=== PATIENT | female | born 1985 | race Caucasian/White ===

== ENCOUNTER 2019-04-16 02:45 | Emergency (ER) | payer OTHER ==
[2019-04-16] MEDS ORDERED: NA CHLORIDE 0.9% 1,000 ML ONE (03:27)
[2019-04-16 03:56] LABS: Absolute Lymphocytes (CBC) 2.5 K/uL (0.7-4.9); Basophils % 0.5 % (0-1.3); Hematocrit 43.3 % (36.0-45.0); Lymphocytes % 17.5 % (15.3-44.8); MPV 9.6 fL (7.6-11.3); RBC Red Blood Cell Count 4.75 M/uL (3.86-4.86)
[2019-04-16 04:41] LABS: Urine Glucose NEGATIVE (NEG); Urine Specific Gravity 1.015 (1.005-1.030)
[2019-04-16 04:42] LABS: Urine Blood 2+ (NEG); Urine Protein NEGATIVE (NEG); Urine pH 6.5 (5.0-7.0)
--- NOTE | 2019-04-16 04:52 | ER ---
[facility] Name: Elisha Villegas Age: 33 yrs Sex: Female : 1985 Arrival Date: 04/16/2019 Time: 02:48 Bed 18 Private MD: Diagnosis: Threatened Presentation: 04/16 02:50 Presenting complaint: Patient states: Vaginal bleeding with clots that started today cc3 morning only. Patient denies pain nor cramping. Patient said she has history of 10 years back. Transition of care: patient was not received from another setting of care. Onset of symptoms was April 16, 2019. Risk Assessment: Do you want to hurt yourself or someone else? Patient reports no desire to harm self or others. Initial Sepsis Screen: Does the patient meet any 2 criteria? HR > 90 bpm. Does the patient have a suspected source of infection? No. Patient's initial sepsis screen is negative. Care prior to arrival: None. 02:50 Method Of Arrival: Ambulatory cc3 02:50 Acuity: DIANE 3 cc3 Triage Assessment: 02:50 General: Appears in no apparent distress. uncomfortable, Behavior is calm, cooperative, cc3 appropriate for age. Pain: Denies pain. EENT: No signs and/or symptoms were reported regarding the EENT system. Neuro: Level of Consciousness is awake, alert, obeys commands, Oriented to person, place, time, situation, Appropriate for age. Cardiovascular: Denies chest pain, Capillary refill < 3 seconds Patient's skin is warm and dry. Respiratory: Airway is patent Respiratory effort is even, unlabored, Respiratory pattern is regular, symmetrical. GI: Abdomen is round. : Reports vaginal bleeding that is bright red, with clots, light flow, since today morning. Derm: Skin is intact, is healthy with good turgor, Skin is pink, warm \T\ dry. normal, Rash noted that is on all over the patient's upper ang lower extremities. Musculoskeletal: Circulation, motion, and sensation intact. Range of motion: intact in all extremities. 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 - Social history:: Smoking status: Patient/guardian denies using tobacco, never smoked, Patient uses vape. - Ebola Screening: : No symptoms or risks identified at this time. - Family history:: not pertinent. Screenin:50 Abuse screen: Denies threats or abuse. Denies injuries from another. Nutritional cc3 screening: No deficits noted. Tuberculosis screening: No symptoms or risk factors identified. Fall Risk Ambulatory Aid- None/Bed Rest/Nurse Assist (0 pts). Gait- Normal/Bed Rest/Wheelchair (0 pts) Mental Status- Oriented to own ability (0 pts). Assessment: 02:50 Obstetrical Assessment: General assessment: awake and alert, anxious. cc3 03:30 Reassessment: Patient appears in no apparent distress at this time. Patient and/or cc3 family updated on plan of care and expected duration. Pain level reassessed. Patient is alert, oriented x 3, equal unlabored respirations, skin warm/dry/pink. 04:19 Reassessment: Patient appears in no apparent distress at this time. Patient and/or cc3 family updated on plan of care and expected duration. Pain level reassessed. Patient is alert, oriented x 3, equal unlabored respirations, skin warm/dry/pink. 04:30 Reassessment: Patient taken by automotive exhaust emissions technician to ultrasound department by ann. cc3 04:49 Reassessment: Patient appears in no apparent distress at this time. Patient and/or cc3 family updated on plan of care and expected duration. Pain level reassessed. Patient is alert, oriented x 3, equal unlabored respirations, skin warm/dry/pink. Patient came back from ultrasound department, awaiting result. Patient denies pain at this time. 05:30 Reassessment: Patient appears in no apparent distress at this time. Patient and/or cc3 family updated on plan of care and expected duration. Pain level reassessed. Patient is alert, oriented x 3, equal unlabored respirations, skin warm/dry/pink. Dr. Childs discharged the patient home with prescription given. IV cannula removed and patient left ER vitally stable and ambulatory with her . No valuables left in the patient's room. Patient denies pain at this time. Patient states feeling better. Patient states symptoms have improved. Vital Signs: 02:50 BP 168 / 102; Pulse 99; Resp 20 S; Temp 98.2(O); Pulse Ox 99% on R/A; Weight 127.46 kg cc3 (R); Height 5 ft. 6 in. (167.64 cm) (R); Pain 0/10; 03:15 BP 135 / 61; Pulse 92; Resp 18 S; Pulse Ox 99% on R/A; cc3 04:25 BP 139 / 67; Pulse 90; Resp 17 S; Pulse Ox 99% on R/A; cc3 05:18 BP 133 / 72; Pulse 88; Resp 16 S; Pulse Ox 99% on R/A; cc3 02:50 Body Mass Index 45.35 (127.46 kg, 167.64 cm) cc3 ED Course: 02:48 Patient arrived in ED. ag3 02:50 Arm band placed on right wrist. cc3 02:50 Patient has correct armband on for positive identification. Placed in gown. Bed in low cc3 position. Call light in reach. Side rails up X 1. shelter monitor on. Pulse ox on. NIBP on. 02:55 Gera Childs MD is Attending Physician. maurice 03:05 Carla Martinez is Primary Nurse. cc3 03:11 Triage completed. cc3 03:54 Inserted saline lock: 22 gauge upper arm, using aseptic technique. oe 04:48 US Transvaginal Ob In Process Unspecified. EDMS 04:50 Norris Wen MD is Referral Physician. maurice 05:30 No provider procedures requiring assistance completed. IV discontinued, intact, cc3 bleeding controlled, No redness/swelling at site. Pressure dressing applied. Administered Medications: 03:45 Drug: NS 0.9% 1000 ml Route: IV; Rate: 1 bolus; Site: right antecubital; cc3 05:30 Follow up: Response: No adverse reaction; IV Status: Completed infusion; IV Intake: cc3 1000ml Intake: 05:30 IV: 1000ml; Total: 1000ml. cc3 Outcome: 04:51 Discharge ordered by . maurice 05:30 Discharged to home ambulatory, with family. cc3 05:30 Condition: stable 05:30 Discharge instructions given to patient, family, Instructed on discharge instructions, follow up and referral plans. medication usage, Demonstrated understanding of instructions, follow-up care, medications, Prescriptions given X 1. 05:40 Patient left the ED. cc3 Signatures: Dispatcher [employer] EDKS Gera Childs MD MD cha Espinosa, [place] oe Cordel, Charlene cc3 Brittney Avila 3
--- NOTE | 2019-04-16 04:53 | EDPHYS ---
Physician Documentation [facility] Name: Elisha Villegas Age: 33 yrs Sex: Female : 1985 Arrival Date: 04/16/2019 Time: 02:48 Bed 18 Private MD: ALEIDA Physician Gera Childs HPI: 04/16 03:28 This 33 yrs old Female presents to ER via Ambulatory with complaints of maurice Vaginal Bleeding, + Preg <12wks. 03:28 The patient presents to the emergency department with vaginal bleeding. The estimated maurice gestational age is 6 weeks. course: care: none, Leakage of Fluid: none appreciated. Previous pregnancies: in previous pregnancies patient has had , 10 yrs ago. Associated signs and symptoms: The patient has no apparent associated signs or symptoms. The patient has not experienced similar symptoms in the past. 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 - Social history:: Smoking status: Patient/guardian denies using tobacco, never smoked, Patient uses vape. - Ebola Screening: : No symptoms or risks identified at this time. - Family history:: not pertinent. ROS: 03:28 Constitutional: Negative for fever, chills, and weight loss, Eyes: Negative for injury, maurice pain, redness, and discharge, ENT: Negative for injury, pain, and discharge, Neck: Negative for injury, pain, and swelling, Cardiovascular: Negative for chest pain, palpitations, and edema, Respiratory: Negative for shortness of breath, cough, wheezing, and pleuritic chest pain, Abdomen/GI: Negative for abdominal pain, nausea, vomiting, diarrhea, and constipation, Back: Negative for injury and pain, : Negative for injury, bleeding, discharge, and swelling, MS/Extremity: Negative for injury and deformity, Skin: Negative for injury, rash, and discoloration, Neuro: Negative for headache, weakness, numbness, tingling, and seizure, Psych: Negative for depression, anxiety, suicide ideation, homicidal ideation, and hallucinations, Allergy/Immunology: Negative for hives, rash, and allergies, Endocrine: Negative for neck swelling, polydipsia, polyuria, polyphagia, and marked weight changes, Hematologic/Lymphatic: Negative for swollen nodes, abnormal bleeding, and unusual bruising. Exam: 03:28 Constitutional: This is a well developed, well nourished patient who is awake, alert, maurice and in no acute distress. Head/Face: Normocephalic, atraumatic. Eyes: Pupils equal round and reactive to light, extra-ocular motions intact. Lids and lashes normal. Conjunctiva and sclera are non-icteric and not injected. Cornea within normal limits. Periorbital areas with no swelling, redness, or edema. ENT: Nares patent. No nasal discharge, no septal abnormalities noted. Tympanic membranes are normal and external auditory canals are clear. Oropharynx with no redness, swelling, or masses, exudates, or evidence of obstruction, uvula midline. Mucous membranes moist. Neck: Trachea midline, no thyromegaly or masses palpated, and no cervical lymphadenopathy. Supple, full range of motion without nuchal rigidity, or vertebral point tenderness. No Meningismus. Chest/axilla: Normal chest wall appearance and motion. Nontender with no deformity. No lesions are appreciated. Cardiovascular: Regular rate and rhythm with a normal S1 and S2. No gallops, murmurs, or rubs. Normal PMI, no JVD. No pulse deficits. Respiratory: Lungs have equal breath sounds bilaterally, clear to auscultation and percussion. No rales, rhonchi or wheezes noted. No increased work of breathing, no retractions or nasal flaring. Abdomen/GI: Soft, non-tender, with normal bowel sounds. No distension or tympany. No guarding or rebound. No evidence of tenderness throughout. Back: No spinal tenderness. No costovertebral tenderness. Full range of motion. Skin: Warm, dry with normal turgor. Normal color with no rashes, no lesions, and no evidence of cellulitis. MS/ Extremity: Pulses equal, no cyanosis. Neurovascular intact. Full, normal range of motion. Neuro: Awake and alert, GCS 15, oriented to person, place, time, and situation. Cranial nerves II-XII grossly intact. Motor strength 5/5 in all extremities. Sensory grossly intact. Cerebellar exam normal. Normal gait. Psych: Awake, alert, with orientation to person, place and time. Behavior, mood, and affect are within normal limits. Vital Signs: 02:50 BP 168 / 102; Pulse 99; Resp 20 S; Temp 98.2(O); Pulse Ox 99% on R/A; Weight 127.46 kg cc3 (R); Height 5 ft. 6 in. (167.64 cm) (R); Pain 0/10; 03:15 BP 135 / 61; Pulse 92; Resp 18 S; Pulse Ox 99% on R/A; cc3 04:25 BP 139 / 67; Pulse 90; Resp 17 S; Pulse Ox 99% on R/A; cc3 05:18 BP 133 / 72; Pulse 88; Resp 16 S; Pulse Ox 99% on R/A; cc3 02:50 Body Mass Index 45.35 (127.46 kg, 167.64 cm) 3 MDM: 02:57 Patient medically screened. [facility] 03:30 Data reviewed: vital signs, nurses notes, lab test result(s), radiologic studies, [facility] ultrasound. 04/16 02:59 Order name: Quantitative Hcg [facility] 04/16 02:59 Order name: Abo/rh Typing [facility] 04/16 02:59 Order name: Basic Metabolic Panel; Complete Time: 04:50 [facility] 04/16 02:59 Order name: CBC with Diff; Complete Time: 04:50 [facility] 04/16 02:59 Order name: Urine Culture [facility] 04/16 03:00 Order name: HCG, Quantitative; Complete Time: 04:50 EDCT 04/16 02:59 Order name: Urine Test (obtain specimen); Complete Time: 04:06 [facility] 04/16 02:59 Order name: IV Saline Lock; Complete Time: 04:06 [facility] 04/16 02:59 Order name: Labs collected and sent; Complete Time: 04:06 [facility] 04/16 02:59 Order name: US Transvaginal Ob [facility] 04/16 03:00 Order name: ABO/RH typing; Complete Time: 04:50 EDMS 04/16 04:06 Order name: Urine Dipstick--Ancillary (enter results); Complete Time: 04:50 cm6 04/16 04:06 Order name: Urine --Ancillary (enter results); Complete Time: 04:50 cm6 04/16 02:59 Order name: NPO; Complete Time: 04:06 maurice 04/16 02:59 Order name: Urine Dipstick-Ancillary (obtain specimen); Complete Time: 04:06 [facility] Administered Medications: 03:45 Drug: NS 0.9% 1000 ml Route: IV; Rate: 1 bolus; Site: right antecubital; cc3 05:30 Follow up: Response: No adverse reaction; IV Status: Completed infusion; IV Intake: cc3 1000ml Disposition: 04/16/19 04:51 Discharged to Home. Impression: Threatened . - Condition is Stable. - Discharge Instructions: Threatened Miscarriage, Vaginal Bleeding During , First Trimester, First Trimester of , [id number], First Trimester of , Threatened Miscarriage, Uigh-pm-Vlem, Pelvic Rest. - Prescriptions for Vitamin 27- 0.8 mg Oral Tablet - take 1 tablet by ORAL route once daily; 30 tablet. - Medication Reconciliation Form, Thank You Letter, Antibiotic Education, Prescription Opioid Use, Work release form form. - Follow up: Private Physician; When: 2 - 3 days; Reason: Recheck today's complaints, Continuance of care, Re-evaluation by your physician. Follow up: Norris Wen MD; When: 2 - 3 days; Reason: Recheck today's complaints, Re-evaluation by your physician. - Problem is new. - Symptoms have improved. Signatures: Dispatcher [employer] EDCT Gera Childs MD MD cha Cordel, Charlene cc3 Corrections: (The following items were deleted from the chart) 05:40 04:51 04/16/2019 04:51 Discharged to Home. Impression: Threatened . Condition cc3 is Stable. Forms are Medication Reconciliation Form, Thank You Letter, Antibiotic Education, Prescription Opioid Use. Follow up: Private Physician; When: 2 - 3 days; Reason: Recheck today's complaints, Continuance of care, Re-evaluation by your physician. Follow up: Norris Wen; When: 2 - 3 days; Reason: Recheck today's complaints, Re-evaluation by your physician. Problem is new. Symptoms have improved. [facility]
--- NOTE | 2019-04-16 08:27 | RAD REPORT ---
EXAM DESCRIPTION: US - Transvaginal OB - 04/16/2019 4:47 am CLINICAL HISTORY: ABD CRAMPING, COMPARISON: No comparisons FINDINGS: A single gestational sac is seen within the uterus. The shape of the sac is within normal limits for gestational age. Within the sac is a single pole with crown-rump length of 4 mm, cor relating to estimated gestational age of 6 weeks 1 day. Estimated date of delivery is 12/09/2019. Heart rate is 120 BPM. The placenta is not yet developed due to early gestational age. 12 mm and 15 mm subchorionic bleeds a re seen surrounding the sac. The maternal adnexa and ovaries are within normal limits. Normal Doppler blood flow was demonstrated to both ovaries. IMPRESSION: Single live early intrauterine gestation with estimated gestational age of 6 weeks 1 day , CELESTINO 12/09/2019.
== END 2019-04-16 05:40 | disposition home or self-care (01) ==
LOC: ER 02:45
DX: O20.0 Threatened abortion (principal); O99.331 Smoking (tobacco) complicating pregnancy, first trimester; F17.290 Nicotine dependence, other tobacco product, uncomplicated; Z3A.01 Less than 8 weeks gestation of pregnancy
CPT/HCPCS: 87088; 85025; 87086; 80048; 36415; 86900; 81025; 86901; 84702; 81003; 76817; J7030; 96360; 96361; 99284

== ENCOUNTER 2023-03-14 09:20 | Emergency (ER) | payer OTHER ==
--- OUTSIDE RECORDS SUMMARY | 2023-03-14 09:26 | XMS REPORT | Continuity of Care Document ---
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 NON-REASSURING MONITORING, GDM, INSULIN DEPENDEN T, RESOLVED PLACENTAPREVIA. --- Signed Bree Khan 01/31/23 1112 END OF REPORT CBC W/AUTO [id number] 12:00:00 Test Item Value Reference Range Interpretation Comments WHITE BLOOD CELL (test 12.1 K/mm3 6.5-12.3 Resul ts verified by code = WBC) repeat analysis RED BLOOD CELL (test 3.87 M/mm3 3.51-4.69 N code = RBC) HEMOGLOBIN (test code = 11.9 g/dL 10.1-13.8 N HGB) HEMATOCRIT (test code = 35.3 % 32.5-41.8 N HCT) MEAN CELL VOLUME (test 91.2 fL 84.6-96.6 N code = MCV) MEAN CELL HGB (test code 30.7 pg 27.3-33.9 N = MCH) MEAN CELL HGB 33.7 gm/dL 32.0-34.2 N CONCETRATION (test code = MCHC) RED CELL DISTRIBUTION 13.5 % 12.2-16.3 N WIDTH (test code = RDW) PLATELET COUNT (test 178 K/mm3 134-363 N code = PLT) MEAN PLATELET VOLUME 12.1 fL 9.2-12.7 N (test code = MPV) NEUTROPHIL % (test code 75.7 % 57.9-77.3 N = NT%) LYMPHOCYTE % (test code 15.4 % 14.5-29.7 N = LY%) MONOCYTE % (test code = 6.4 % 3.6-10.2 N MO%) EOSINOPHIL % (test code 0.8 % 0.0-3.0 N = EO%) BASOPHIL % (test code = 0.5 % 0.1-0.9 N BA%) NEUTROPHIL # (test code 9.2 K/mm3 = NT#) LYMPHOCYTE # (test code 1.9 K/mm3 = LY#) MONOCYTE # (test code = 0.8 K/mm3 MO#) EOSINOPHIL # (test code 0.10 K/mm3 = EO#) BASOPHIL # (test code = 0.1 K/mm3 BA#) RBC MORPHOLOGY REQUIRED NORMAL NORMAL (test code = RBCM) PLATELET MORPHOLOGY NORMAL NORMAL REQUIRED (test code = PLTMR) [id number] 05:43:00 Test Item Value Reference Range Interpretation Comments GLUBED (test code = GLUBED) 107 mg/dL 65-110 N CBC W/AUTO [id number] 23:22:00 Test Item Value Reference Range Interpretation Comments WHITE BLOOD CELL (test code = WBC) 8.6 K/mm3 6.5-12.3 N RED BLOOD CELL (test code = RBC) 3.85 M/mm3 3.51-4.69 N HEMOGLOBIN (test code = HGB) 12.0 g/dL 10.1-13.8 N HEMATOCRIT (test code = HCT) 34.9 % 32.5-41.8 N MEAN CELL VOLUME (test code = MCV) 90.6 fL 84.6-96.6 N MEAN CELL HGB (test code = MCH) 31.2 pg 27.3-33.9 N MEAN CELL HGB CONCETRATION (test 34.4 gm/dL 32.0-34.2 H code = MCHC) RED CELL DISTRIBUTION WIDTH (test 13.1 % 12.2-16.3 N code = RDW) PLATELET COUNT (test code = PLT) 176 K/mm3 134-363 N MEAN PLATELET VOLUME (test code = 11.5 fL 9.2-12.7 N MPV) NEUTROPHIL % (test code = NT%) 61.7 % 57.9-77.3 N LYMPHOCYTE % (test code = LY%) 25.9 % 14.5-29.7 N MONOCYTE % (test code = MO%) 9.2 % 3.6-10.2 N EOSINOPHIL % (test code = EO%) 1.3 % 0.0-3.0 N BASOPHIL % (test code = BA%) 0.4 % 0.1-0.9 N NEUTROPHIL # (test code = NT#) 5.3 K/mm3 LYMPHOCYTE # (test code = LY#) 2.2 K/mm3 MONOCYTE # (test code = MO#) 0.8 K/mm3 EOSINOPHIL # (test code = EO#) 0.11 K/mm3 BASOPHIL # (test code = BA#) 0.0 K/mm3 RBC MORPHOLOGY REQUIRED (test code NORMAL NORMAL = RBCM) PLATELET MORPHOLOGY REQUIRED (test NORMAL NORMAL code = PLTMR) RUPTURE OF [id number] 22:59:00 Test Item Value Reference Range Interpretation Comments RUPTURE OF MEMBRANES (test code = RUPTURED ROM) [id number] 20:21:00 Test Item Value Reference Range Interpretation Comments GLUBED (test code = GLUBED) 81 mg/dL 65-110 N [id number] 16:30:00 Test Item Value Reference Range Interpretation Comments GLUBED (test code = GLUBED) 96 mg/dL 65-110 N [id number] 11:16:00 Test Item Value Reference Range Interpretation Comments GLUBED (test code = GLUBED) 100 mg/dL 65-110 N [id number] 06:36:00 Test Item Value Reference Range Interpretation Comments GLUBED (test code = GLUBED) 80 mg/dL 65-110 N [id number] 20:18:00 Test Item Value Reference Range Interpretation Comments GLUBED (test code = GLUBED) 91 mg/dL 65-110 N [id number] 14:22:00 Test Item Value Reference Range Interpretation Comments GLUBED (test code = GLUBED) 86 mg/dL 65-110 N [id number] 10:20:00 Test Item Value Reference Range Interpretation Comments GLUBED (test code = GLUBED) 68 mg/dL 65-110 N [id number] 06:46:00 Test Item Value Reference Range Interpretation Comments GLUBED (test code = GLUBED) 83 mg/dL 65-110 N [id number] 20:04:00 Test Item Value Reference Range Interpretation Comments GLUBED (test code = GLUBED) 78 mg/dL 65-110 N [id number] 17:40:00 Test Item Value Reference Range Interpretation Comments GLUBED (test code = GLUBED) 106 mg/dL 65-110 N [id number] 17:23:00 Test Item Value Reference Range Interpretation Comments GLUBED (test code = GLUBED) 65 mg/dL 65-110 N [id number] 14:47:00 Test Item Value Reference Range Interpretation Comments GLUBED (test code = GLUBED) 176 mg/dL 65-110 H [id number] 10:03:00 Test Item Value Reference Range Interpretation Comments GLUBED (test code = GLUBED) 74 mg/dL 65-110 N [id number] 06:10:00 Test Item Value Reference Range Interpretation Comments GLUBED (test code = GLUBED) 95 mg/dL 65-110 N [id number] 19:56:00 Test Item Value Reference Range Interpretation Comments GLUBED (test code = GLUBED) 95 mg/dL 65-110 N [id number] 16:05:00 Test Item Value Reference Range Interpretation Comments GLUBED (test code = GLUBED) 99 mg/dL 65-110 N [id number] 11:20:00 Test Item Value Reference Range Interpretation Comments GLUBED (test code = GLUBED) 135 mg/dL 65-110 H [id number] 06:24:00 Test Item Value Reference Range Interpretation Comments GLUBED (test code = GLUBED) 80 mg/dL 65-110 N [id number] 19:35:00 Test Item Value Reference Range Interpretation Comments GLUBED (test code = GLUBED) 89 mg/dL 65-110 N [id number] 14:02:00 Test Item Value Reference Range Interpretation Comments GLUBED (test code = GLUBED) 81 mg/dL 65-110 N [id number] 09:09:00 Test Item Value Reference Range Interpretation Comments GLUBED (test code = GLUBED) 73 mg/dL 65-110 N [id number] 06:03:00 Test Item Value Reference Range Interpretation Comments GLUBED (test code = GLUBED) 80 mg/dL 65-110 N [id number] 19:08:00 Test Item Value Reference Range Interpretation Comments GLUBED (test code = GLUBED) 126 mg/dL 65-110 H [id number] 15:33:00 Test Item Value Reference Range Interpretation Comments GLUBED (test code = GLUBED) 73 mg/dL 65-110 N [id number] 10:07:00 Test Item Value Reference Range Interpretation Comments GLUBED (test code = GLUBED) 76 mg/dL 65-110 N [id number] 06:29:00 Test Item Value Reference Range Interpretation Comments GLUBED (test code = GLUBED) 80 mg/dL 65-110 N [id number] 19:37:00 Test Item Value Reference Range Interpretation Comments GLUBED (test code = GLUBED) 94 mg/dL 65-110 N [id number] 14:08:00 Test Item Value Reference Range Interpretation Comments GLUBED (test code = GLUBED) 113 mg/dL 65-110 H [id number] 11:08:00 Test Item Value Reference Range Interpretation Comments GLUBED (test code = GLUBED) 63 mg/dL 65-110 L [id number] 06:09:00 Test Item Value Reference Range Interpretation Comments GLUBED (test code = GLUBED) 72 mg/dL 65-110 N [id number] 03:22:00 Test Item Value Reference Range Interpretation Comments GLUBED (test code = GLUBED) 80 mg/dL 65-110 N [id number] 20:10:00 Test Item Value Reference Range Interpretation Comments GLUBED (test code = GLUBED) 115 mg/dL 65-110 H [id number] 14:32:00 Test Item Value Reference Range Interpretation Comments GLUBED (test code = GLUBED) 77 mg/dL 65-110 N [id number] 11:03:00 Test Item Value Reference Range Interpretation Comments GLUBED (test code = GLUBED) 69 mg/dL 65-110 N [id number] 05:52:00 Test Item Value Reference Range Interpretation Comments GLUBED (test code = GLUBED) 79 mg/dL 65-110 N [id number] 20:10:00 Test Item Value Reference Range Interpretation Comments GLUBED (test code = GLUBED) 94 mg/dL 65-110 N [id number] 14:10:00 Test Item Value Reference Range Interpretation Comments GLUBED (test code = GLUBED) 80 mg/dL 65-110 N [id number] 09:44:00 Test Item Value Reference Range Interpretation Comments GLUBED (test code = GLUBED) 70 mg/dL 65-110 N [id number] 05:51:00 Test Item Value Reference Range Interpretation Comments GLUBED (test code = GLUBED) 71 mg/dL 65-110 N [id number] 20:41:00 Test Item Value Reference Range Interpretation Comments GLUBED (test code = GLUBED) 86 mg/dL 65-110 N [id number] 14:06:00 Test Item Value Reference Range Interpretation Comments GLUBED (test code = GLUBED) 121 mg/dL 65-110 H [id number] 11:01:00 Test Item Value Reference Range Interpretation Comments GLUBED (test code = GLUBED) 87 mg/dL 65-110 N [id number] 06:55:00 Test Item Value Reference Range Interpretation Comments GLUBED (test code = GLUBED) 88 mg/dL 65-110 N [id number] 06:17:00 Test Item Value Reference Range Interpretation Comments GLUBED (test code = GLUBED) 63 mg/dL 65-110 L [id number] 19:54:00 Test Item Value Reference Range Interpretation Comments GLUBED (test code = GLUBED) 82 mg/dL 65-110 N [id number] 13:22:00 Test Item Value Reference Range Interpretation Comments GLUBED (test code = GLUBED) 103 mg/dL 65-110 N [id number] 10:48:00 Test Item Value Reference Range Interpretation Comments GLUBED (test code = GLUBED) 81 mg/dL 65-110 N [id number] 06:53:00 Test Item Value Reference Range Interpretation Comments GLUBED (test code = GLUBED) 95 mg/dL 65-110 N [id number] 06:14:00 Test Item Value Reference Range Interpretation Comments GLUBED (test code = GLUBED) 67 mg/dL 65-110 N [id number] 19:49:00 Test Item Value Reference Range Interpretation Comments GLUBED (test code = GLUBED) 89 mg/dL 65-110 N [id number] 13:59:00 Test Item Value Reference Range Interpretation Comments GLUBED (test code = GLUBED) 97 mg/dL 65-110 N [id number] 06:13:00 Test Item Value Reference Range Interpretation Comments GLUBED (test code = GLUBED) 99 mg/dL 65-110 N [id number] 19:40:00 Test Item Value Reference Range Interpretation Comments GLUBED (test code = GLUBED) 139 mg/dL 65-110 H [id number] 15:25:00 Test Item Value Reference Range Interpretation Comments GLUBED (test code = GLUBED) 115 mg/dL 65-110 H [id number] 10:21:00 Test Item Value Reference Range Interpretation Comments GLUBED (test code = GLUBED) 98 mg/dL 65-110 N [id number] 05:45:00 Test Item Value Reference Range Interpretation Comments GLUBED (test code = GLUBED) 121 mg/dL 65-110 H [id number] 20:12:00 Test Item Value Reference Range Interpretation Comments GLUBED (test code = GLUBED) 135 mg/dL 65-110 H [id number] 16:34:00 Test Item Value Reference Range Interpretation Comments GLUBED (test code = GLUBED) 98 mg/dL 65-110 N AG HEPATITIS B [id number] 15:23:00 Test Item Value Reference Range Interpretation Comments AG HEPATITIS B SURFACE (test code NONREACTIVE NONREACTIVE = HBSAG) AB HEPATITIS C [id number] 15:23:00 Test Item Value Reference Range Interpretation Comments AB HEPATITIS C (test code = NONREACTIVE NONREACTIVE HCVAB) SIGNAL TO CUTOFF (test code = 0.04 <0.80 N CUTOFF) AB [id number] 15:23:00 Test Item Value Reference Range Interpretation Comments AB TREPONEMA (test code = TREPAB) NONREACTIVE NONREACTIVE AB HIV 1 15:23:00 Test Item Value Reference Range Interpretation Comments AB HIV 1 2 (test NONREACTIVE NONREACTIVE [facility] = PEG61JS) 4th Gen HIV Ag/Ab Combo Screen CBC W/AUTO [id number] 14:28:00 Test Item Value Reference Range Interpretation Comments WHITE BLOOD CELL (test code = WBC) 10.7 K/mm3 6.5-12.3 N RED BLOOD CELL (test code = RBC) 4.05 M/mm3 3.51-4.69 N HEMOGLOBIN (test code = HGB) 12.6 g/dL 10.1-13.8 N HEMATOCRIT (test code = HCT) 36.5 % 32.5-41.8 N MEAN CELL VOLUME (test code = MCV) 90.1 fL 84.6-96.6 N MEAN CELL HGB (test code = MCH) 31.1 pg 27.3-33.9 N MEAN CELL HGB CONCETRATION (test 34.5 gm/dL 32.0-34.2 H code = MCHC) RED CELL DISTRIBUTION WIDTH (test 13.4 % 12.2-16.3 N code = RDW) PLATELET COUNT (test code = PLT) 188 K/mm3 134-363 N MEAN PLATELET VOLUME (test code = 11.5 fL 9.2-12.7 N MPV) NEUTROPHIL % (test code = NT%) 75.9 % 57.9-77.3 N LYMPHOCYTE % (test code = LY%) 15.4 % 14.5-29.7 N MONOCYTE % (test code = MO%) 6.6 % 3.6-10.2 N EOSINOPHIL % (test code = EO%) 0.7 % 0.0-3.0 N BASOPHIL % (test code = BA%) 0.6 % 0.1-0.9 N NEUTROPHIL # (test code = NT#) 8.1 K/mm3 LYMPHOCYTE # (test code = LY#) 1.7 K/mm3 MONOCYTE # (test code = MO#) 0.7 K/mm3 EOSINOPHIL # (test code = EO#) 0.07 K/mm3 BASOPHIL # (test code = BA#) 0.1 K/mm3 RBC MORPHOLOGY REQUIRED (test code NORMAL NORMAL = RBCM) PLATELET MORPHOLOGY REQUIRED (test NORMAL NORMAL code = PLTMR) URINALYSIS [id number] 10:02:00 Test Item Value Reference Range Interpretation Comments UA COLOR (test code = YELLOW YELLOW COLU) UA APPEARANCE (test code CLEAR CLEAR = APPU) UA GLUCOSE DIPSTICK (test NEGATIVE NEG code = DGLUU) UA BILIRUBIN DIPSTICK NEGATIVE NEG (test code = BILU) UA KETONE DIPSTICK (test NEGATIVE NEG code = KETU) UA SPECIFIC GRAVITY (test 1.005 1.001-1.035 N code = SGU) UA BLOOD DIPSTICK (test 3+ NEG A code = ERNIE) UA PH DIPSTICK (test code 7.0 5-9 = MICHELLE) UA PROTEIN DIPSTICK (test NEGATIVE NEG code = PROU) UA UROBILINIOGEN DIPSTICK NEGATIVE mg/dL NEG (test code = URO) UA NITRITE DIPSTICK (test NEG NEG code = TRACY) UA LEUKOCYTE ESTERASE 2+ NEG A DIPSTICK (test code = LEUU) UA WBC (test code = WBCU) 16-20 #/hpf NONE SEEN A UA RBC (test code = RBCU) TOO NUMEROUS TO CNT NONE SEEN A #/hpf UA EPITHELIAL CELLS (test RARE #/HPF RARE-FEW code = EPIU) UA BACTERIA (test code = RARE /HPF RARE-FEW BACU) UA MUCUS (test code = RARE NONE SEEN MUCU) URINE SAMPLE: CLEAN CATCHURINALYSIS [id number] 06:43:00 Test Item Value Reference Range Interpretation Comments UA COLOR (test code = COLU) STRAW YELLOW UA APPEARANCE (test code = CLEAR CLEAR APPU) UA GLUCOSE DIPSTICK (test code NEGATIVE NEG = DGLUU) UA BILIRUBIN DIPSTICK (test NEGATIVE NEG code = BILU) UA KETONE DIPSTICK (test code NEGATIVE NEG = KETU) UA SPECIFIC GRAVITY (test code 1.003 1.001-1.035 N = SGU) UA BLOOD DIPSTICK (test code = 3+ NEG A ERNIE) UA PH DIPSTICK (test code = 7.0 5-9 MICHELLE) UA PROTEIN DIPSTICK (test code NEGATIVE NEG = PROU) UA UROBILINIOGEN DIPSTICK NEGATIVE mg/dL NEG (test code = URO) UA NITRITE DIPSTICK (test code NEG NEG = TRACY) UA LEUKOCYTE ESTERASE DIPSTICK TRACE NEG A (test code = LEUU) UA WBC (test code = WBCU) 3-5 #/hpf NONE SEEN A UA RBC (test code = RBCU) 0-2 #/hpf NONE SEEN UA EPITHELIAL CELLS (test code RARE #/HPF RARE-FEW = EPIU) UA BACTERIA (test code = BACU) RARE /HPF RARE-FEW Specimen Comment: REGINO PEÑA SAMPLE: CLEAN [id number] 06:21:00 Test Item Value Reference Range Interpretation Comments GLUBED (test code = GLUBED) 79 mg/dL 65-110 N CBC W/AUTO [id number] 06:16:00 Test Item Value Reference Range Interpretation Comments WHITE BLOOD CELL (test code = WBC) 9.9 K/mm3 6.5-12.3 N RED BLOOD CELL (test code = RBC) 3.78 M/mm3 3.51-4.69 N HEMOGLOBIN (test code = HGB) 11.7 g/dL 10.1-13.8 N HEMATOCRIT (test code = HCT) 33.6 % 32.5-41.8 N MEAN CELL VOLUME (test code = MCV) 88.9 fL 84.6-96.6 N MEAN CELL HGB (test code = MCH) 31.0 pg 27.3-33.9 N MEAN CELL HGB CONCETRATION (test 34.8 gm/dL 32.0-34.2 H code = MCHC) RED CELL DISTRIBUTION WIDTH (test 13.2 % 12.2-16.3 N code = RDW) PLATELET COUNT (test code = PLT) 163 K/mm3 134-363 N MEAN PLATELET VOLUME (test code = 10.9 fL 9.2-12.7 N MPV) NEUTROPHIL % (test code = NT%) 74.5 % 57.9-77.3 N LYMPHOCYTE % (test code = LY%) 16.4 % 14.5-29.7 N MONOCYTE % (test code = MO%) 7.2 % 3.6-10.2 N EOSINOPHIL % (test code = EO%) 0.6 % 0.0-3.0 N BASOPHIL % (test code = BA%) 0.4 % 0.1-0.9 N NEUTROPHIL # (test code = NT#) 7.4 K/mm3 LYMPHOCYTE # (test code = LY#) 1.6 K/mm3 MONOCYTE # (test code = MO#) 0.7 K/mm3 EOSINOPHIL # (test code = EO#) 0.06 K/mm3 BASOPHIL # (test code = BA#) 0.0 K/mm3 RBC MORPHOLOGY REQUIRED (test code NORMAL NORMAL = RBCM) PLATELET MORPHOLOGY REQUIRED (test NORMAL NORMAL code = PLTMR) - US [id number] 00:00:[address] : 1985 Sex: F Patient Name: ELISHA HEAD Unit No: [id number] EXAMS: CPT CODE: [id number] US LTD 06685 PROCEDURE INFORMATION: Exam: US , Limited Exam date and time: 01/02/2023 7:02 AM Age: 37 years old Clinical indication: Lmp or gestational age (in weeks): 30w6d; Antepartum complications; Bleeding; ; Prior surgery; Additional info: Lower abd pressure, vag bleeding TECHNIQUE: Imaging protocol: Real-time ultrasound of the maternal uterus with image documentation. Exam focused on the clinical indication. COMPARISON: US LTD 11/02/2022 5:01 PM FINDINGS: Gestation: Single intrauterine uterine gestation. heart rate: 137 bpm presentation: Vertex Placenta: Placenta is located anteriorly. Grade 2. No placenta previa. Amniotic fluid index: AGUEDA is 19.3 cm. Umbilical cord insertion site into the abdomen: Umbilical cord vessels are seen coursing between the head and cervix. MATERNAL: Cervix: 3.1 cm. IMPRESSION: Umbilical cord vessels are seen coursing between thefetal head and cervix. at 0821 Reported and signed by: Cindy Kinsey MD CC: Lenora Macario MD; Ky Dailey MD Technologist: Eunice Irby RDMS Probe: Trnscrbd D/ (820) GCD.CPS Orig Print D/T: S: 01/02/2023 (820) [facility] NAME: ELISHA HEAD Radiology Department PHYS: Serjio Black MD [address] : 1985 AGE: 37 SEX: F [place] [address] LOC: LonnieESTEFANÍA PHONE #: [phone] EXAM DATE: 01/02/2023 STATUS: REG ER FAX #: [phone] RAD NO: Page 1 Signed Report Patient Name: ELISHA HEAD Unit No: [id number] EXAMS: CPT CODE: [id number] LTD 35136 (Continued) [facility] NAME: ELISHA HEAD Radiology Department PHYS: Lenora Black MD [address] : 1985 AGE: 37 SEX: F [place] [address] LOC: Russ.ESTEFANÍA PHONE #: [phone] EXAM DATE: 01/02/2023 STATUS: REG ER FAX #: [phone] RAD NO: Page 2 Signed [id number] 06:13:00 Test Item Value Reference Range Interpretation Comments GLUBED (test code = GLUBED) 84 mg/dL 65-110 N [id number] 20:51:00 Test Item Value Reference Range Interpretation Comments GLUBED (test code = GLUBED) 84 mg/dL 65-110 N [id number] 15:51:00 Test Item Value Reference Range Interpretation Comments GLUBED (test code = GLUBED) 84 mg/dL 65-110 N [id number] 12:18:00 Test Item Value Reference Range Interpretation Comments GLUBED (test code = GLUBED) 82 mg/dL 65-110 N [id number] 06:08:00 Test Item Value Reference Range Interpretation Comments GLUBED (test code = GLUBED) 79 mg/dL 65-110 N - US [id number] 00:00[facility]00 [facility] 1985 Sex: F Patient Name: ELISHA HEAD Unit No: [id number] EXAMS: CPT CODE: [id number] US LTD 64235 PROCEDUREINFORMATION: Exam: US , Limited Exam date and time: 11/02/2022 5:01 PM Age: 37 years old Clinical indication: Lmp or gestational age (in weeks): Previa with bleeding; ; Prior surgery; Surgery date: 6+ months; Surgery type: LABS AND CLINICAL REPORTS: Gestational age (Established): 22 w 1 d Estimated due date (Established): 03/07/2023 TECHNIQUE: Imaging protocol: Real-time ultrasound of the maternal uterus with image documentation. Exam focused on the clinical indication. COMPARISON: No relevant prior studies available. FINDINGS: Limitations: No transvaginal exam was performed as requested by ordering physician. Gestation: Single live intrauterine gestation. heart rate: 147 bpm presentation: Cephalic presentation. Placenta: Anterior grade 1 placenta without placenta previa. The inferior margin of the placenta terminates 2.1 cm from the internal cervicalos, but there appears to be some vessels near the internal os by color Doppler which may represent marginal sinus previa. Hypoechoic collection deep to the inferior aspect of the placenta measures 4.4 x 1.1 x 4.5 cm (11.3 mL). Amniotic fluid index: AGUEDA is 11.8 cm. MATERNAL: Cervix: The cervix measures3.2 cm via translabial approach. Right ovary/adnexa: The right ovary measures 2 x 1.4 x 1.5 cm. Normal contour. Left ovary/adnexa: The left ovary was not visualized. No adnexal mass. IMPRESSION: 1. Somewhat limited exam as no transvaginal ultrasound was performed. Possible marginal sinus previa. 2. Small retroplacental hemorrhage. 3. Normal amniotic fluid index of 11.8 cm. at 0835 Reported and signed by: Jone Curry MD [facility] NAME: ELISHA HEAD Radiology Department PHYS: Ky Briggs MD [address] : 1985 AGE: 37 SEX: F [place] [address] LOC: F.5052 A PHONE #: [phone] EXAM DATE: 11/02/2022 STATUS: ADM IN FAX #: [phone] RAD NO: Page 1 Signed Report (CONTINUED) Patient Name: ELISHA HEAD Unit No: [id number] EXAMS: CPT CODE: [id number] LTD [id number] (Continued) CC: Ky Dailey MD Technologist: Antonina Becerra RDMS Probe: Trnscrbd D/ (834) [email or web address] Orig Print D/T: S: 11/03/2022 (834) [facility] NAME: ELISHA HEAD Radiology Department PHYS: Ky Briggs MD [address] : 1985 AGE: 37SEX: F [place] [address] LOC: F.5052 A PHONE #: [phone] EXAM DATE: 11/02/2022 STATUS: ADM IN FAX #: [phone] RAD NO: Page 2 Signed Report Patient Name: ELISHA HAED Unit No: [id number] EXAMS: CPT CODE: [id number] [place] LTD 14898 (Continued) [facility] NAME: ELISHA HEAD Radiology Department PHYS: Ky Briggs MD [address] : 1985 AGE: 37 SEX: F [place], [place] [address] LOC: F.Radha2 A PHONE #: [phone] EXAM DATE: 11/02/2022 STATUS: ADM IN FAX #: [phone] RAD NO: Page 3 Signed [id number] 20:19:00 Test Item Value Reference Range Interpretation Comments GLUBED (test code = GLUBED) 77 mg/dL 65-110 N [id number] 14:58:00 Test Item Value Reference Range Interpretation Comments GLUBED (test code = GLUBED) 78 mg/dL 65-110 N AB HIV 1 14:50:00 Test Item Value Reference Range Interpretation Comments AB HIV 1 2 (test NONREACTIVE NONREACTIVE Done by [facility] code = [id number]) 4th Gen HIV Ag/Ab Combo Screen AG HEPATITIS B [id number] 14:50:00 Test Item Value Reference Range Interpretation Comments AG HEPATITIS B SURFACE (test code NONREACTIVE NONREACTIVE = HBSAG) AB HEPATITIS C [id number] 14:50:00 Test Item Value Reference Range Interpretation Comments AB HEPATITIS C (test code = NONREACTIVE NONREACTIVE HCVAB) SIGNAL TO CUTOFF (test code = 0.11 <0.80 N CUTOFF) AB [id number] 14:50:00 Test Item Value Reference Range Interpretation Comments AB TREPONEMA (test code = TREPAB) NONREACTIVE NONREACTIVE URINALYSIS [id number] 07:47:00 Test Item Value Reference Range Interpretation Comments UA COLOR (test code = COLU) COLORLESS YELLOW UA APPEARANCE (test code = CLEAR CLEAR APPU) UA GLUCOSE DIPSTICK (test NEGATIVE NEG code = DGLUU) UA BILIRUBIN DIPSTICK (test NEGATIVE NEG code = BILU) UA KETONE DIPSTICK (test code NEGATIVE NEG = KETU) UA SPECIFIC GRAVITY (test 1.001 1.001-1.035 N code = SGU) UA BLOOD DIPSTICK (test code 2+ NEG A = ERNIE) UA PH DIPSTICK (test code = 7.0 5-9 MICHELLE) UA PROTEIN DIPSTICK (test NEGATIVE NEG code = PROU) UA UROBILINIOGEN DIPSTICK NEGATIVE mg/dL NEG (test code = URO) UA NITRITE DIPSTICK (test NEG NEG code = TRACY) UA LEUKOCYTE ESTERASE NEG NEG DIPSTICK (test code = LEUU) UA WBC (test code = WBCU) NONE SEEN #/hpf NONE SEEN UA RBC (test code = RBCU) 0-2 #/hpf NONE SEEN UA EPITHELIAL CELLS (test RARE #/HPF RARE-FEW code = EPIU) UA BACTERIA (test code = NEGATIVE /HPF RARE-FEW BACU) Specimen Comment: [facility] SAMPLE: CLEAN CATCHCBC W/AUTO [id number] 07:25:00 Test Item Value Reference Range Interpretation Comments WHITE BLOOD CELL (test code = WBC) 8.1 K/mm3 6.5-12.3 N RED BLOOD CELL (test code = RBC) 3.91 M/mm3 3.51-4.69 N HEMOGLOBIN (test code = HGB) 12.2 g/dL 10.1-13.8 N HEMATOCRIT (test code = HCT) 35.0 % 32.5-41.8 N MEAN CELL VOLUME (test code = MCV) 89.5 fL 84.6-96.6 N MEAN CELL HGB (test code = MCH) 31.2 pg 27.3-33.9 N MEAN CELL HGB CONCETRATION (test 34.9 gm/dL 32.0-34.2 H code = MCHC) RED CELL DISTRIBUTION WIDTH (test 13.7 % 12.2-16.3 N code = RDW) PLATELET COUNT (test code = PLT) 171 K/mm3 134-363 N MEAN PLATELET VOLUME (test code = 11.1 fL 9.2-12.7 N MPV) NEUTROPHIL % (test code = NT%) 73.6 % 57.9-77.3 N LYMPHOCYTE % (test code = LY%) 18.6 % 14.5-29.7 N MONOCYTE % (test code = MO%) 6.0 % 3.6-10.2 N EOSINOPHIL % (test code = EO%) 0.9 % 0.0-3.0 N BASOPHIL % (test code = BA%) 0.4 % 0.1-0.9 N NEUTROPHIL # (test code = NT#) 6.0 K/mm3 LYMPHOCYTE # (test code = LY#) 1.5 K/mm3 MONOCYTE # (test code = MO#) 0.5 K/mm3 EOSINOPHIL # (test code = EO#) 0.07 K/mm3 BASOPHIL # (test code = BA#) 0.0 K/mm3 RBC MORPHOLOGY REQUIRED (test code NORMAL NORMAL = RBCM) PLATELET MORPHOLOGY REQUIRED (test NORMAL NORMAL code = PLTMR) POCT [id number] 16:07:00 Test Item Value Reference Range Interpretation Comments POCT PREG (test code = 1605) Negative On board controls acceptable with C Yes Line (test code = 3574) POCT PREG LOT # (test code = 3575) POCT PREG TEST DATE (test code = 3576) [id number]:07:00 Test Item Value Reference Range Interpretation Comments POCT PREG (test code = 1605) Negative On board controls acceptable with C Yes Line (test code = 3574) POCT PREG LOT # (test code = 3575) POCT PREG TEST DATE (test code = 3576) [facility]] GLUCOSE TOLERANCE TEST, 3 SPECIMENS, (75G)2020-01-10 08:19:00 Test Item Value Reference Range Interpretation Comments FASTING SPECIMEN 84 mg/dl 65-99 N (test code = FASTING SPECIMEN) 1 HOUR SPECIMEN 114 mg/dl N (test code = 1 HOUR SPECIMEN) 2 HOUR SPECIMEN 55 mg/dl <140 (test code = 2 HOUR SPECIMEN) COMMENT (test See Below Spanish Diabe lyubov code = COMMENT) AssociationD iagnostic Criteria for Di abetes Mellitus Glucos e Value (mg/dL)Interpre tation Fasting 1 Hr 2 Hr Tolerance Tolerance------ -------- --------- ----- ---- ---------Normal <100 Not Established <14 0Impaired Fasting 100-125 Impaired Tolerance 140-1 99Diabetes >MV=305* >OR=20 0 Must be confirmed by te sting on a subsequent day. [facility][QH] STREPTOCOCCUS, GROUP B CULTURE (Genital Strep Screen) 2019-11-13 16:07:01 Test Item Value Reference Range Interpretation Comments FINAL REPORT (test No Beta-Hemolytic code = FINAL REPORT) Streptococci Isolated [facility][Q] STREPTOCOCCUS, GROUP B CULTURE (Genital Strep Screen)2019-11-13 16:07:01 Test Item Value Reference Range Interpretation Comments FINAL REPORT (test No Beta-Hemolytic code = FINAL REPORT) Streptococci Isolated [facility][O] Urine Dipstick (In Office)2019-11-13 15:26:00 Test Item Value Reference Range Interpretation Comments Glucose (test code = Glucose) neg N LEUKOCYTES (test code = LEUKOCYTES) neg N NITRITE; Normal (test code = 21673-4) neg N UROBILINOGEN; Normal (test code = 0.2 N 63444-4) PROTEIN; Normal (test code = 05856-1) neg N pH (test code = pH) 7.0 N URINE BLOOD; Normal (test code = neg N 93410-5) SPECIFIC GRAVITY; Normal (test code = 1.015 N 2965-2) KETONES; Normal (test code = 67774-8) neg N BILIRUBIN; Normal (test code = 12449-5) neg N [facility][QH] HIV AB, HIV 1/2, EIA, WITH [id number] 14:44:01 Test Item Value Reference Range Interpretation Comments HIV Ag/Ab 4th Gen Negative Negative HIV test r esults should be (test code = considered posi tive only 42917-4) when both the s creening andthe confirma tory tests are positive. A negative confirmatory te st in patientswith a positive screening test does not exclude HIV inf ection. If clincallywarran leyla, an HIV RNA quantitativ e test should be order ed. [facility][Q] HIV AB, HIV 1/2, EIA, WITH [id number] 14:44:01 Test Item Value Reference Range Interpretation Comments HIV Ag/Ab 4th Gen Negative Negative HIV test r esults should be (test code = considered posi tive only 54931-8) when both the s creening andthe confirma tory tests are positive. A negative confirmatory te st in patientswith a positive screening test does not exclude HIV inf ection. If clincallywarran leyla, an HIV RNA quantitativ e test should be order ed. [facility][O] Urine Dipstick (In Office)2019-11-06 13:52:00 Test Item Value Reference Range Interpretation Comments Glucose (test code = Glucose) neg N LEUKOCYTES (test code = LEUKOCYTES) neg N NITRITE; Normal (test code = 68781-2) neg N UROBILINOGEN; Normal (test code = 0.2 N 86684-3) PROTEIN; Normal (test code = 28614-7) neg N pH (test code = pH) 7.0 N URINE BLOOD; Normal (test code = neg N 24423-1) SPECIFIC GRAVITY; Normal (test code = 1.015 N 2965-2) KETONES; Normal (test code = 65149-2) neg N BILIRUBIN; Normal (test code = 30762-9) neg N [facility][O] Urine Dipstick (In Office)2019-10-23 14:00:00 Test Item Value Reference Range Interpretation Comments Glucose (test code = Glucose) Negative N LEUKOCYTES (test code = LEUKOCYTES) Negative N NITRITE; Normal (test code = Negative N 51466-3) UROBILINOGEN; Normal (test code = 0.2 N 88575-7) PROTEIN; Normal (test code = Negative N 81006-6) pH (test code = pH) 7.0 N URINE BLOOD; Normal (test code = Negative N 17010-5) SPECIFIC GRAVITY; Normal (test code 1.010 N = 2965-2) KETONES; Normal (test code = Negative N 63169-1) BILIRUBIN; Normal (test code = Negative N 01823-3) [facility][O] Urine Dipstick (In Office)2019-10-09 15:16:00 Test Item Value Reference Range Interpretation Comments Glucose (test code = Glucose) Negative N LEUKOCYTES (test code = LEUKOCYTES) Negative N NITRITE; Normal (test code = Negative N 96778-3) UROBILINOGEN; Normal (test code = 0.2 N 73929-0) PROTEIN; Normal (test code = Negative N 09584-9) pH (test code = pH) 5.5 N URINE BLOOD; Normal (test code = Negative N 96050-4) SPECIFIC GRAVITY; Normal (test code 1.025 N = 2965-2) KETONES; Normal (test code = Negative N 15098-6) BILIRUBIN; Normal (test code = Negative N 99737-2) [facility][O] Urine Dipstick (In Office)2019-09-25 09:09:00 Test Item Value Reference Range Interpretation Comments Glucose (test code = Glucose) neg N LEUKOCYTES (test code = LEUKOCYTES) neg N NITRITE; Normal (test code = 41040-6) neg N UROBILINOGEN; Normal (test code = 0.2 N 44358-8) PROTEIN; Normal (test code = 41778-6) neg N pH (test code = pH) 7.0 N URINE BLOOD; Normal (test code = neg N 51198-4) [facility]] CBC (INCLUDES DIFF/PLT)2019-09-11 16:58:01 Test Item Value Reference Range Interpretation Comments WBC; Above High Threshold (test 12.2 {K/CMM} 3.7-10.4 code = 6690-2) RBC (test code = 789-8) 4.32 {M/CMM} 4.20-5.40 Hgb (test code = 718-7) 12.8 g/dl 12.0-16.0 Hct (test code = 15539-2) 38.2 % 36.0-48.0 MCV (test code = 787-2) 88.4 fL 80.0-98.0 MCH (test code = 785-6) 29.7 pg 27.0-31.0 MCHC (test code = 786-4) 33.6 g/dl 32.0-36.0 RDW (test code = 788-0) 13.8 % 11.5-14.5 Platelet (test code = 93268-5) 226 {K/CMM} 133-450 Mean Platelet Volume (test code 10.0 fL 7.4-10.4 = 65675-7) [facility]] [id number] 16:58:01 Test Item Value Reference Range Interpretation Comments Segmented Neutrophils (test code 71.7 % 45.0-75.0 = 30876-8) Monocytes (test code = 29411-2) 5.5 % 2.0-12.0 Lymphocytes (test code = 20669-4) 21.4 % 20.0-40.0 Eosinophils (test code = 32282-4) 1.2 % 0.0-4.0 Basophils (test code = 706-2) 0.2 % 0.0-1.0 Segs-Bands #; Above High 8.7 {K/CMM} 1.5-8.1 Threshold (test code = 77222-3) Lymphocytes # (test code = 2.6 {K/CMM} 1.0-5.5 07384-3) Monocytes # (test code = 44440-9) 0.7 {K/CMM} 0.0-0.8 Eosinophils # (test code = 0.1 {K/CMM} 0.0-0.5 53527-2) [facility][H] Treponemal Scr w/ RPR if [id number] 16:58:01 Test Item Value Reference Range Interpretation Comments Treponemal Ab (test code = Non-Reactive Non-Reactive Treponemal Ab) [facility][O] Urine Dipstick (In Office)2019-09-11 15:47:00 Test Item Value Reference Range Interpretation Comments Glucose (test code = Glucose) Negative N LEUKOCYTES (test code = LEUKOCYTES) Negative N NITRITE; Normal (test code = Negative N 67629-5) UROBILINOGEN; Normal (test code = 0.2 N 59709-2) PROTEIN; Normal (test code = Negative N 16115-7) pH (test code = pH) 6.5 N URINE BLOOD; Normal (test code = Negative N 87799-4) SPECIFIC GRAVITY; Normal (test code 1.020 N = 2965-2) KETONES; Abnormal (test code = Trace A 38631-8) BILIRUBIN; Normal (test code = Negative N 65733-0) [facility][O] Urine Dipstick (In Office)2019-08-14 14:30:00 Test Item Value Reference Range Interpretation Comments Glucose (test code = Glucose) Negative N LEUKOCYTES (test code = LEUKOCYTES) Negative N NITRITE; Normal (test code = Negative N 97330-7) UROBILINOGEN; Normal (test code = 0.2 N 99184-4) PROTEIN; Normal (test code = Negative N 26024-4) pH (test code = pH) 6.0 N URINE BLOOD; Normal (test code = Negative N 18703-6) SPECIFIC GRAVITY; Normal (test code 1.015 N = 2965-2) KETONES; Abnormal (test code = 15 A 18604-5) BILIRUBIN; Normal (test code = Negative N 75232-4) [facility][O] Urine Dipstick (In Office)2019-07-31 12:08:00 Test Item Value Reference Range Interpretation Comments Glucose (test code = Glucose) Negative N LEUKOCYTES (test code = LEUKOCYTES) Negative N NITRITE; Normal (test code = Negative N 04851-1) UROBILINOGEN; Normal (test code = 0.2 N 23264-6) PROTEIN; Normal (test code = Negative N 41735-5) pH (test code = pH) 7.0 N URINE BLOOD; Normal (test code = Negative N 01914-9) SPECIFIC GRAVITY; Normal (test code 1.015 N = 2965-2) KETONES; Normal (test code = Negative N 20885-7) BILIRUBIN; Normal (test code = Negative N 12071-2) [facility][O] Urine Dipstick (In Office)2019-07-17 14:25:00 Test Item Value Reference Range Interpretation Comments Glucose (test code = Glucose) 100 A LEUKOCYTES (test code = LEUKOCYTES) Negative N NITRITE; Normal (test code = Negative N 29646-4) UROBILINOGEN; Normal (test code = 0.2 N 17492-1) PROTEIN; Normal (test code = Negative N 51061-1) pH (test code = pH) 6.0 N URINE BLOOD; Normal (test code = Negative N 93844-7) SPECIFIC GRAVITY; Normal (test code 1.015 N = 2965-2) KETONES; Abnormal (test code = 40 A 43901-8) BILIRUBIN; Normal (test code = Negative N 77844-4) [facility]] CMP [id number] 11:12:01 Test Item Value Reference Range Interpretation Comments Sodium Level 138 {mEq/l} 135-145 (test code = 2951-2) Potassium Level 3.9 {mEq/l} 3.5-5.1 (test code = 2823-3) Chloride Level 106 {mEq/l} 95-109 (test code = 2075-0) Carbon Dioxide 28 {mEq/l} 24-32 (test code = 2027-9) AGAP; Below Low 7.9 {mEq/l} 10.0-20.0 Threshold (test code = 13326-8) Glucose Lvl (test 84 mg/dl 70-99 Adult refe rence range code = 2345-7) values reflec t the clinical guidel inesof the [place] Diabet es Association. Creatinine Lvl 0.60 mg/dl 0.50-1.40 (test code = 2160-0) Blood Urea 7 mg/dl 7-22 Nitrogen (test code = 3094-0) BUN/Creatinine 12 6-25 Ratio (test code = 3097-3) Total Protein 6.5 g/dl 6.4-8.4 (test code = 2885-2) Albumin Lvl; 3.3 g/dl 3.5-5.0 Below Low Threshold (test code = 1751-7) Globulin (test 3.2 g/dl 2.7-4.2 code = 49395-1) A/G Ratio (test 1.0 0.7-1.6 code = 1759-0) Calcium Level 8.4 mg/dl 8.5-10.5 Total; Below Low Threshold (test code = 46126-3) ALT (test code = 29 u/l 0-65 1743-4) AST (test code = 12 u/l 0-37 76676-6) Bili Total (test 0.3 mg/dl 0.2-1.3 code = 1975-2) Alk Phos (test 49 u/l 39-136 The pediatric reference code = 1783-0) ranges for th is test represent a CLSI-basedtrans ference of the CALIPER jefe abase of pediatric refer ence intervals to eSiemens [place] analyzer (Clinical Biochemistry 46 (2013): 3832-4880). [facility] has not internally validated these reference ranges and therefore they should be used only in e context of a thoroughcl inical assessment. eGFR (test code = 120 The eGFR i s calculated 37256-3) {ML/MIN/1.7} using the CKD-E PI formula. In mos t young, healthyindividu als the eGFR will be >9 0 mL/min/1.73m2. The eGFR declines with a ge. AneGFR of 60-89 may be normal in some population s, particularly th e elderly, forwhom the CKD -EPI formula has not been extensively alex idated. Use of the eGFR isnot recommended in the following populations:Ind ividuals with unstable c reatinine concentrations, including patient s and those with seri ous co-morbid conditions.Maki ents with extremes in mus christa mass or diet.The jefe a above are obtained fr om the National Kidney Disease Education Progr am(NKDEP) which letty isaac recommends that when the eGFR is used in patientswith ex tremes of body mass index for purposes of sally g dosing, the eGFR should be multiplied by t he estimated BMI. [facility][H] Quad [id number] 11:12:01 Test Item Value Reference Range Interpretation Comments Results (Maternal Comment The MOM an d risk Screen) (test factors of thi s report code = Results have been (Maternal modifiedbased o n new Screen)) information sup plied to us by the ta medrano. Note that the gestat ional ages on the angela ginal report andthis recalculated re port differ by less than 10 days.Recalculat ions are not recomme nded when gestationa l datingby LMP an d ultrasound are within 10 days.The Gestational Age Based On was changed from LMP 02/28/2019 to EDD12/05/2019.C aroldo d from Report [ NA] on 07/15/19 15:09: 36 MINING ANALYST by Contributor_sys tem,LAB RE[facility]I. Test Results *Screen A (Maternal Screen) Positive* (test code = Test Results (Maternal Screen)) Gest Age on 18.9 {WEEKS} Collection Date (test code = Gest Age on Collection Date) Gest Age Base On CELESTINO 02/28/2019 (test code = Gest 12/05/2019 Corrected Age Base On) from LMP [NA] o n 07/15/19 15:09: 36 MINING ANALYST by Contributor_sys tem,LAB REJI. Maternal Age at 34.3 CELESTINO (test code = Maternal Age at CELESTINO) Maternal Race Other (test code = Maternal Race) Maternal Weight 278 {lb} (test code = Maternal Weight) Insulin-Dependent Yes Not provid ed.Not Diabetic (test provided.Antonio ected code = from Comment [N A] on Insulin-Dependent 07/15/19 1 5:09:36 MINING ANALYST Diabetic) by Contributor_[employer],LAB REJI. Multiple Gest No (test code = Multiple Gest) Alpha Fetoprotein 24.8 ng/ml Maternal (test code = Alpha Fetoprotein Maternal) Multiple of 0.91 Corrected from 0.73 Median AFP (test [NA] on code = 06522-1) 15:09:36 MINING ANALYST by Contributor_sys [employer],LAB REJI. hCG Maternal 97310 {miU/ml} (test code = hCG Maternal) MoM hCG (test 2.35 code = MoM hCG) PT'S uE3 (test 1.61 ng/ml code = PT'S uE3) Multiple of 1.14 Median uE3 (test code = Multiple of Median uE3) Inhibin A, 239.64 pg/ml Dimeric (test code = Inhibin A, Dimeric) MoM Inhibin A, 1.93 Dimeric (test code = MoM Inhibin A, Dimeric) OSBR Risk (test [address] [place] [address] code = OSBR Risk) [NA] on 15:09:36 MINING ANALYST by Contributor_[employer],LAB REJI. Down Syndrome 245 Corrected from 96 [NA] Risk (2nd on 07/15/19 15: 09:36 trimester) (test MINING ANALYST by code = Down Contributor_[employer], Syndrome Risk [facility]. (2nd trimester)) Age Risk Down 345 Syndrome (test code = Age Risk Down Syndrome) Risk for Trisomy Not increased 18 (test code = Risk for Trisomy 18) Age Risk Trisomy 1:1346 18 (test code = Age Risk Trisomy 18) Maternal Screen Comment Interpretati on: Screen Interp (test code Positive f or Down = Maternal Screen SyndromeTh is patient Interp) is at increased risk to have a baby withDown Syndro me. The Down Syndrome r isk was calculated usin gthe gestational age provided, mater nal age, AFP, hCG, uE3and SERJIO values. Approximately 7 5-80% of DownSy ndrome can be detected by this test. This result isscreen negati ve for open spina bifi da. This test canid entify up to 80% of op en neural tu be defects.Closed neural tube defects an d some open defects ma y not bedetected by t his test. This test can identify nphegxozgaskj36 % of Trisomy 18. Recommendations :1. Targeted ultrasound to c onfirm gestational age and rule out anomalies.2. Do not repeat test. Re peating the test can re sult infalse negativ es.3. Genetic counseling program leader ing and amniocentesis a re appropriateopti ons.Rec alculations are not recommended whe n gestational jefe ingby LMP and ultraso und are within 10 days.Interpreta tion: Screen Positive for Down SyndromeTh is patient is at increased risk to have a baby withDown Syndrome. The D own Syndrome risk w as calculated usin gthe gestational age provided, mater nal age, AFP, hCG, uE3and SERJIO values. Approximately 7 5-80% of DownSy ndrome can be detected by this test. This result isscreen negati ve for open spina bifi da. This test canid entify up to 80% of op en neural tu be defects.Closed neural tube defects an d some open defects ma y not bedetected by t his test. This test can identify shgavfbiisjcj94 % of Trisomy 18. Recommendations :1. Targeted ultrasound to c onfirm gestational age and rule out anomalies.2. Do not repeat test. Re peating the test can re sult infalse negativ es.3. Genetic counseling program leader ing and amniocentesis a re appropriateopti ons.Thi s is a correcte d report. The pre viously reported result (s) were:Test Resul t Date First Reported======= === ==== Updates reporte d on: 07/15/2019 3:45 PMThe Insulin Depende nt Diabetes was ch anged from Not provid ed. to Yes.AFP MOM ALEX UE 0.73 07/12/2019 11: 35 PMDSR (SECOND TRIMESTER) 1 IN 96 07/12/2019 11:3 5 PMOSBR RISK 1 [place] N [address] 07/12/2019 11:3 5 PMRecalculation s are not recommended when gestational jefe ingby LMP and ultraso und are within 10 days.Corrected from Comment [NA] on 07/15/19 15:09: 36 MINING ANALYST by Contributor_sys tem,LAB REJI. Comment (Maternal Comment Bandar Mcnair) (test code Ph.D., FACM GPrincipal = Comment Genetics Techni shelly (Maternal Scrn)) DirectorRef erences: Available Upon Request.Multipl es Of Median Cutoffs Abbreviation Definitions For AFP Elevations IDD- Insulin Dep DiabetesSinglet on 2.5 Black 2.8 OSBR- Open Spina BifidaIDD 2.0 Twins 4.5 RiskD SR Cutoff 1:270 DS R- Down Syndrome RiskT1 8 Cutoff 1:100 T1 8- Trisomy 18Down Syndrome and Tr isomy 18 screening ar e consideredInves tigatio nalFor further inquiries conta ct [facility] s Servicesat [phone]. Perform ed At: [facility] [id number] BioMedical EnterprisesFred[place], [place] [id number] giovanna Oh MD Ph:[phone] Insulin Y Dependent? (test code = Insulin Dependent?) Gest Ager Weeks? 18 (test code = Gest Ager Weeks?) Gest Age Days 6 (test code = Gest Age Days) Gest Age Date of 20190703 Calculation (YYYYMMDD) (test code = Gest Age Date of Calculation (YYYYMMDD)) Gest Age Method Ultrasound of Calculation (test code = Gest Age Method of Calculation) Date of LMP (test 20190228 code = Date of LMP) Est Due Date 20191215 (test code = Est Due Date) Number of Fetuses 1 (test code = Number of Fetuses) Other N Indications? (test code = Other Indications?) Additional N Information? (test code = Additional Information?) Donor Egg (test N code = Donor Egg) Donor Age at Egg 0 Retrieval (test code = Donor Age at Egg Retrieval) [facility]] URINALYSIS, [id number] 16:53:01 Test Item Value Reference Range Interpretation Comments UA Turbidity; Abnormal (test code Slight Clear A = 64009-6) UA Spec Grav (test code = 5810-7) 1.006 <=1.030 UA pH (test code = 5803-2) 6.0 5.0-8.0 UA Protein (test code = 83869-7) Negative Negative UA Glucose (test code = 46812-5) Negative Negative UA Ketones (test code = 48162-9) Negative Negative UA Bili (test code = 5770-3) Negative Negative UA Blood (test code = 5794-3) Negative Negative UA Nitrite (test code = 5802-4) Negative Negative UA Leuk Est (test code = 5799-2) Negative Negative UA Sq Epi (test code = 53718-3) Occasional Few UA Color (test code = 5778-6) Ltyellow UROBILINOGEN (test code = 63835-7) <=1.0 0.1-1.0 [facility][Q] PROTEIN, TOTAL W/CREAT, RANDOM [id number] 16:53:01 Test Item Value Reference Range Interpretation Comments U Creatinine (test 29.80 mg/dl No establ ished code = 2161-8) reference ran ge. Urine Protein Level <5.0 No estab lished (test code = 2888-6) referen ce ranges. U Prot/Creat (test <0.17 code = 2890-2) [facility][QL] BV/ VAGINITIS PANEL DNA PROBE [id number] 16:53:01 Test Item Value Reference Range Interpretation Comments Trichomonas vaginalis DNA (test code Negative Negative = 15190-5) Gardnerella vaginalis DNA; Abnormal Positive Negative A (test code = 6410-5) Lani sp. DNA (test code = Negative Negative 27014-8) [facility][QL] CULTURE, URINE, [id number] 16:53:01 Test Item Value Reference Range Interpretation Comments FINAL REPORT (test code = FINAL No Growth REPORT) [facility][O] Urine Dipstick (In Office)2019-07-03 13:27:00 Test Item Value Reference Range Interpretation Comments Glucose (test code = Glucose) Negative N LEUKOCYTES (test code = LEUKOCYTES) Negative N NITRITE; Normal (test code = Negative N 47774-8) UROBILINOGEN; Normal (test code = 0.2 N 69767-5) PROTEIN; Normal (test code = Negative N 80439-6) pH (test code = pH) 6.5 N URINE BLOOD; Normal (test code = Negative N 73703-7) SPECIFIC GRAVITY; Normal (test code 1.015 N = 2965-2) KETONES; Normal (test code = Negative N 77356-4) BILIRUBIN; Normal (test code = Negative N 64993-5) [facility] Notes Date/Time Note Provider Source 2023-02-26 23:21:00-00:00 [id number] [facility] [address], [place] [address] PATIENT NAME: ELISHA HEAD ADMIT DATE: 01/15/23 ACCOUNT NO: [id number] ROOM NO: [facility] AGE: 37 SEX: F ADMITTING PHYSICIAN: Ky Dailey MD ATTENDING PHYSICIAN: Ky Dailey MD Provider Query QUERY TEXT: Clarification Conflicting Diagnosis Procedure 36 0MD Query related questions should be directed to: Delores pacheco [place] Coding Query Helpline [phone] Based on your clinical judgement, please clarify the following conflicting documentation: Gestational diabetes and type 1 diabetes are doc umented in the account. Please clarify. (i.e. gestational diabetes insulin controlled, p reexisting type 1 diabetes insulin controlled, other more appropriate diagnosis) The patient's Clinical Indicators include: Type 1 diabetes, pre-existing 3rd trimester - Co nsult 01/15/2023 Dr. Christianson, Consult 01/19/2021 Dr. Shawn john, consult 01/15/2023 Gestational diabetes on insulin - OP 01/31/2023 gestational diabetes (insulin controlled), - DS 01/31/2023 Gestational Diabetes; Insulin Depen Diabetes - I npatient summary nursing note Options provided: -- Respond - Create new note now -- Dismiss - Not applicable / Not valid -- Dismiss - Clinically unable to determine / Un known -- Assign to another provider QUERY RESPONSE: She was gestational diabetes on insulin Query created by: Ana Rosa Buenrostro on 02/15/2023 8 :54 AM Electronically Signed by Ky Dailey MD on at 2321 PATIENT NAME: ELISHA HEAD 2023-01-31 08:27:00-00:00 [facility] ([facility]) OB Disch REPORT#:[id number] REPORT STATUS: Signed DATE:01/31/23 TIME: 826 PATIENT: ELISHA HEAD UNIT #: [id number] ROOM/BED: [facility]-A : 85 AGE: 37 SEX: F ATTEND: Ky Dailey MD ADM AUTHOR: Ky Dailey MD * ALL edits or amendments must be made on the el ectronic/computer document * Subjective Subjective Patient reports: Patient reports: Yes: normal lochia, pain management eff ective, tolerating po well, tolerating ambulation, flatus. No: complaints. Objective General VS: Vital Signs Date Temp Pulse Resp B/P B/P Mean Pulse Ox FiO2 /05 98.2-98.4 74-79 18 114-134/69-88 83.8-103 .8 Last Documented: Result Date Time B/P 114/69 / 2325 B/P Mean 83.8 / 2325 Temp 98.2 / 2325 Pulse 79 06/05 2325 Resp 18 / 2325 Pulse Ox 99 06/04 1232 PATIENT WEIGHT: Weight (lb): 216 Weight (oz): Weight (kg): 98.200 Physical Exam Neuro: Exam: alert, oriented x3, normal speech Abdomen: post gravid, soft, no abnormal tenderne ss Incision site: well approximated edges, parisa intact, dressing clean dry, dry, no drainage, no inflammation Uterus: involution appropriate, non-tender Fundus: firm, below the umbilicus, non-tender Discharge Summary General Assessment: nml progress Hospital course: nml postop/postpart car e, SHE WAS ADMITTED FOR LABOR, MAG CELESTONE AND ATBX. SHE ARRESTED, BS WERE CO NTROLLED, SHE WENT INTO LABOR AND HAD REPAT LTCD AND B/L STERILIZATION AT 34+ WEEKS FOR NRFHR Discharge to: Home/Self Care Discharge diagnosis: pre-ter m labor, gestational diabetes (insulin controlled), anemia (acute blood loss) Plan: routine car e, discharge tomorrow, AUGMENTIN WAS STARTED DUE TO ECOLI ON VAG CX AND INCISION SPASHING WITH IODIN E Vaginal packing at delivery: No Discharge Instructions Instructions: routine instr sheet given Diet: Regular Activity: As Tolerated, No Driving, No Intercour se for 6 Wks Additional discharge routines: PCP Follow-Up Discharge meds: Stop taking the following medications: OMEPRAZOLE ER (PriLOSEC) 10 MG CAP. 10 MILLIGRAM ORAL ASDIR PRN. as needed for HEAR TBURN INSULIN GLARGINE (LANTUS) 100 UNIT/ML VIAL 30 UNITS SUBCUTANE. BEDTIME. PROGESTERONE (ENDOMETRIN VAGINAL INSERT) 100 MG SUPP.VAG 100 MILLIGRAM VAGINAL TWICE DAILY. Continue taking these medications: PNV/FE FUM/FA ( MULTIVITAMIN) 28 MG IRON -800 MCG TAB 1 TABLET ORAL DAILY. SERTRALINE (ZOLOFT) 25 MG TAB 25 MILLIGRAM ORAL DAILY. ACETAMINOPHEN (TYLENOL) 325 MG TAB 650 MILLIGRAM ORAL EVERY 4 HOURS NEEDED. as needed for HEADACHE Start taking the following new medications: IBUPROFEN (MOTRIN) 600 MG TAB 600 MILLIGRAM ORAL EVERY 6 HOURS. as needed for pain Qty = 28 No Refills oxyCODONE (oxyCODONE) 5 MG TAB 5 MILLIGRAM ORAL EVERY 6 HOURS NEEDED. as ne eded for c-sction PAIN Qty = 28 No Refills DOCUSATE SODIUM (COLACE) 100 MG CAP 200 MILLIGRAM ORAL BEDTIME. as needed for CONST IPATION Qty = 20 No Refills AMOXICILLIN/CLAV K (AUGMENTIN 500/125 MG) 500 MG -125 MG TAB 500 MILLIGRAM ORAL EVERY 12 HOURS. Qty = 10 No Refills Consultation(s): Consultation performed: umbrella tipper Add'l Follow-up Appointments PCP follow-up: PCP: Ky Dailey MD PCP follow up timeframe: FEBRUARY 08 SCHEDULED Electronically Signed by Ky Dailey MD on 02/17 at 0830 [facility] #:[id number] END OF REPORT 2023-01-31 07:35:00-00:00 [id number] [facility] [address], [place] [address] PATIENT NAME: ELISHA HEAD ADMIT DATE: 01/15/23 ACCOUNT NO: [id number] ROOM NO: .4606 AGE: 37 SEX: F ADMITTING PHYSICIAN: Ky Dailey MD ATTENDING PHYSICIAN: Ky Dailey MD OPERATION DATE: 01/29/2023 PREOPERATIVE DIAGNOSES: 1. Intrauterine at 34+ weeks. 2. Gestational diabetes, on insulin. 3. labor. 4. Desires sterilization. POSTOPERATIVE DIAGNOSES: 1. Intrauterine at 34+ weeks. 2. Gestational diabetes, on insulin. 3. labor. 4. Desires sterilization. PROCEDURES: 1. Repeat low segment section via Pfann enstiel. 2. Bilateral sterilization via salpingectomy. SURGEON: Ky Dailey MD METAL TILE SETTER: Dr. Griffith, OB hospitalist. COMPLICATIONS: None. ESTIMATED BLOOD LOSS: 600 mL INTRAVENOUS FLUIDS: 800 mL LR. URINE OUTPUT: 200 mL clear at the end of the pro cedure. FINDINGS: Male , cephalic presenta tion, Apgars 8 and 9, weight 2480 g to NICU. Placenta 3-vessel cord intact. Uterus, tub es, and ovaries within normal limits. PROCEDURE IN DETAIL: After risks, benefi ts, alternatives and the nature of the procedure were discussed with the patien t at length, she voiced understanding. All her questions were answered to satis faction and she signed consent. On the floor, she was having repetitive decelerat ions. She was rushed to the operating room where spinal anesthesia was found to be adequate. The baby continued to have repetitive decelerations. That is why, she was flushed with iodine and Pfannenstiel skin incision was done after the spinal was found to be adequate. Incision was carried down to the under lying layer of fascia, which was incised in midline and extended late rally bluntly with pellet preparation operator's fingers. PATIENT NAME: ELISHA HEAD 20 The peritoneum and the abdominal muscles were se parated bluntly with the pellet preparation operator's fingers and clear fluid was obtained. The head was delivered atraumatically followed by t he rest of the body. Nose and mouth were suctioned. Cord clamped and cut and the baby handed off to the awaiting baby care team one minute after the baby is born. The uterus was ex teriorized and cleared of all clots and debris. The uterin e incision was closed with 1-0 chromic in the usual locked fashion. Several [id number] stitches using the same suture were placed to obtain excellent hemostasis. A ttention was turned to the right tube. It was grasped with Daniela clamp and two window s were created in the mesosalpinx using the Bovie. Then, the mesosalpi nx was serially clamped with Rachana clamps and the tube was detached and sent to pathology. The patient has agreed to do salpingectomy. Then, the pedicles w ere tied with 0 plain gut sutures. Excellent hemostasis was noted. The rosalie e was done on the other side and excellent hemostasis was noted. The uterus w as returned to the abdomen. The gutters were cleared of all clots and debris . Excellent hemostasis was noted. The fascia was closed with 0 Vicryl in a running fashion. Excellent hemostasis was noted. Irrigation with warm jay l saline was done. Excellent hemostasis was noted. The subcutaneous layer was closed with 3-0 Vicryl in a running fashion. Excellent hemostasis was noted. The skin was closed with parisa. All counts were correct throughout and after the procedure, the patient was taken to the recovery room awake and in stable condition. PATHOLOGY: Both tubes, placenta and cord gases w ere sent. Dictated By: Ky Dailey MD Date Dictated: 01/31/2023 07:35:18 Date Transcribed: 01/31/2023 07:55:43 CHRISTY/SUZANNE/ANGELITO Receipt ID: [id number] Authenticated by Ky Dailey MD On 02/02/2023 1 0:54:10 PM Electronically Signed by Ky Dailey MD on at 1054 PATIENT NAME: ELISHA HEAD 2023-01-30 09:11:00-00:00 [facility] ([facility]) OB Postpart Progr Note REPORT#:[id number] REPORT STATUS: Signed DATE:01/30/23 TIME: 910 PATIENT: ELISHA HEAD UNIT #: [id number] ROOM/BED: [address] : 85 AGE: 37 SEX: F ATTEND: Ky Dailey MD ADM AUTHOR: Ky Dailey MD * ALL edits or amendments must be made on the el Narus/computer document * Subjective Subjective Patient reports: Patient reports: Yes normal lochia, Yes pain management effective, Yes tolerating po well, Yes voiding well, Yes voiding without pain, Yes flat us, No no complaints Objective Nursing Documentation Review Nursing Data: The data set between the solid lines has been im ported from nursing documentation. Any exceptions have been noted be low under Provider comments. Feeding preference: Post hemorrhage risk score: HighRisk Provider comments on imported nursing data: [] General VS: Vital Signs: Date Time Temp Pulse Resp B/P B/P Pulse O2 O2 F low FiO2 Mean Ox Delivery Rate 01/30 0816 97.7 80 18 129/89 102.3 01/30 0040 97.7 77 18 117/78 91.1 01/29 1955 97.9 84 18 130/81 96.9 01/29 1232 97.5 77 18 131/82 98.4 99 PATIENT WEIGHT: Weight (lb): 216 Weight (oz): Weight (kg): 98.200 Physical Exam Neuro: Exam: alert, oriented x3, normal speech Abdomen: soft, no abnormal tenderness, no guardi ng Incision site: well approximated edges, parisa intact, dry, no drainage, no inflammation Uterus: firm, involution appropriate, non-tender Fundus: firm, below the umbilicus, non-tender Diagnosis, Assessment Plan Diagnosis, Assessment Plan Assessment: nml progress Plan: routine care, will start zosyn due to splashing the incision site instead of the usual rubbing Consultation(s): Consultation performed: umbrella tipper Electronically Signed by Ky Dailey MD on 01/17 at 0913 RPT #:[id number] END OF REPORT 2023-01-29 13:22:00-00:00 [facility] ([facility]) OB Postpart Progr Note REPORT#:[id number] REPORT STATUS: Signed DATE:01/29/23 TIME: 1322 PATIENT: ELISHA HEAD UNIT #: [id number] ROOM/BED: [address] : 85 AGE: 37 SEX: F ATTEND: Ky Dailey MD ADM AUTHOR: Ky Dailey MD * ALL edits or amendments must be made on the Siterra/computer document * Subjective Subjective Patient reports: Patient reports: Yes normal lochia, Yes pain management effective, Yes tolerating po well, Yes voiding well, No no complaints Objective General VS: Vital Signs: Date Time Temp Pulse Resp B/P B/P Pulse O2 O2 F low FiO2 Mean Ox Delivery Rate 01/29 1232 97.5 77 18 131/82 98.4 99 06/04 0810 98.6 82 19 135/86 102.2 97 06/04 0400 101.0 06/04 0400 67 11 130/82 100 06/04 0345 96.0 06/04 0345 68 21 126/75 100 06/04 0330 90.0 06/04 0330 70 20 123/69 100 06/04 0315 93.0 06/04 0315 73 30 122/74 100 06/04 0300 87.0 06/04 0300 74 12 119/67 98 06/04 0245 87.0 06/04 0245 73 13 121/67 96 06/04 0231 86.0 06/04 0231 122/60 06/04 0230 69 18 96 06/04 0215 92.0 06/04 0215 80 13 121/72 98 06/04 0207 88.0 06/04 0207 79 119/67 100 06/04 0058 102 100 06/04 0006 98.3 06/03 2336 77.0 06/03 2336 98.6 75 107/57 06/03 2236 98.4 06/03 1935 95.0 01/28 1935 70 125/73 01/28 1615 95.0 / 1615 88 119/81 PATIENT WEIGHT: Weight (lb): 216 Weight (oz): Weight (kg): 98.200 Physical Exam Neuro: Exam: alert, oriented x3, normal speech Abdomen: soft, no abnormal tenderness, no guardi ng Incision site: well approximated edges, parisa intact, dry, no drainage, no inflammation Uterus: firm, involution appropriate, non-tender Fundus: firm, below the umbilicus, non-tender Diagnosis, Assessment Plan Diagnosis, Assessment Plan Assessment: nml progress Plan: routine care, will start zosyn due to splashing the incision site instead of the usual rubbing Electronically Signed by Ky Dailey MD on 12/18 at 1323 RPT #:[id number] END OF REPORT 2023-01-29 02:12:00-00:00 [facility] ([facility]) Brief Op Note REPORT#:[id number] REPORT STATUS: Signed DATE:01/29/23 TIME: 211 PATIENT: ELISHA HEAD UNIT #: [id number] ROOM/BED: [address] : 85 AGE: 37 SEX: F ATTEND: Ky Dailey MD ADM AUTHOR: Ky Dailey MD * ALL edits or amendments must be made on the el Vinculum Solutionsronic/computer document * Op/Inv Proc Note - Brief Pre-procedure diagnosis: IUP 34 4/7 weeks PPROM NRFHR GDM ON INSULIN RILEY RES STERILIZATION Post-procedure diagnosis: same as pre procedure dx Procedures performed: REPEAT LTCD, B/L STERILIZATION Primary Surgeon: YK DAILEY MD Labor Expediter(s): DR BASSETT OB HOSPITALIST Findings: LIVEBORN INFANT MALE APGARS 8,9 WEIGHT 2480 GMS CEPHALIC Complications: none Estimated blood loss in ml's: 600 ML Specimens removed/altered: PLACENTA, CORD GASES Electronically Signed by Ky Dailey MD on 12/18 at 0215 RPT #:[id number] END OF REPORT 2023-01-29 02:10:00-00:00 [facility] ([facility]) Clinical Note REPORT#:[id number] REPORT STATUS: Signed DATE:01/29/23 TIME: 021 PATIENT: ELISHA HEAD UNIT #: [id number] [facility] AGE: 37 SEX: F ATTEND: Ky Dailey MD ADM AUTHOR: Ky Dailey MD * ALL edits or amendments must be made on the Siterra/Wacai document * Clinical Note Note: I was informed that she had leaking and her ROM+ test was positive, she ate around 9:30, I called L D and I came to her room to find FHR having decelerations. Cx was 2.5/10 0/-1 , she was taken urgently to OR. She also wanted sterilization via salpingectomy Electronically Signed by Ky Dailey MD on 12/18 at 0212 RPT #:[id number] END OF REPORT 2023-01-28 13:37:00-00:00 [facility] ([facility]) OB Antepartum Prog Note REPORT#:[id number] REPORT STATUS: Signed DATE:01/28/23 TIME: 1336 PATIENT: ELISHA HEAD UNIT #: [id number] ROOM/BED: [facility] : 85 AGE: 37 SEX: F ATTEND: Ky Dailey MD ADM AUTHOR: Ky Dailey MD * ALL edits or amendments must be made on the Siterra/Wacai document * Subjective Subjective Patient reports: Patient reports: Yes normal movement, No no complaints, No abdominal pain, No vaginal bleeding, No leaking fluid, No contractions Comments: i found out that patient has been refusing compr ession stocks when I saw that they were not applied. We discussed the risks of DVT and pulmonary embolism which could be life threatening. I recommended t o start heparin shot BID. Objective Nursing Documentation Review Nursing data: The data set between the solid lines has been im ported from nursing documentation. Any exceptions have been noted be low under Provider comments. ROM date: ROM time: Labor onset date: Labor onset time: Provider comments on imported nursing data: [] VS: Last Documented: Result Date Time B/P Mean 90.0 / 0900 B/P 117/73 / 0900 Pulse 76 / 0900 Pulse Ox 97 / 0819 Temp 98.1 06/ 0819 Resp 18 / 0819 Vital Signs Date Temp Pulse Resp B/P B/P Mean Pulse Ox FiO2 06/02-/ 98.1 72-81 18 98-128/55-81 72.0-99. 0 97 PATIENT WEIGHT: Weight (lb): 216 Weight (oz): Weight (kg): 98.200 Cervical/ exam: Dilatation (cm): 2 Effacement (%): 90 station: - 3 presentation: cephalic HEENT: normocephalic w/o injury Neuro: Exam: alert, oriented x3, normal speech Abdomen: gravid, soft, no abnormal tenderness Uterus: soft, non-tender Baby A: Baby A baseline: 140 bpm Baby A variability: moderate 6-25 bpm Baby A accelerations: 15 X 15 Baby A FHR category: category 1 Diagnosis, Assessment Plan Diagnosis, Assessment Plan Assessment: status post betamethasone, s tatus post magnesium, IUP 34 3/7 weeks with labor and dilat ion with almost 100% thinning , short cervix, funic presentation, hypoplas tic nasal bone, AMA, prior CD x 1, on procardia GDM on insulin Plan: continue current managmnt, delivery (february 07 at 6:45am), surveillance, inpatient management for now due t o high risk of PPROM and premature delivery as well a s cord prolapse due to funic presentation, she lives an hour away with no appropr iate NICU level available, patient declined heparin when RN went into her room, she promised to keep compression stockings on Electronically Signed by Ky Dailey MD on 11/17 at 1354 RPT #:[id number] END OF REPORT 2023-01-27 08:40:00-00:00 [facility] ([facility]) OB Antepartum Prog Note REPORT#:[id number] REPORT STATUS: Signed DATE:01/27/23 TIME: 0840 PATIENT: ELISHA HEAD UNIT #: [id number] ROOM/BED: [facility] : 85 AGE: 37 SEX: F ATTEND: Ky Dailey MD ADM AUTHOR: Ky Dailey MD * ALL edits or amendments must be made on the el Narus/computer document * Subjective Subjective Patient reports: Patient reports: Yes abdominal pain, Yes vaginal bleedin g, Yes leaking fluid, Yes contractions , Yes normal movement, No no complaints Objective Nursing Documentation Review Nursing data: The data set between the solid lines has been im ported from nursing documentation. Any exceptions have been noted be low under Provider comments. ROM date: ROM time: Labor onset date: Labor onset time: Provider comments on imported nursing data: [] Cervical/ exam: Dilatation (cm): 2 Effacement (%): 90 station: - 3 presentation: cephalic HEENT: normocephalic w/o injury Neuro: Exam: alert, oriented x3, normal speech Abdomen: gravid, soft, no abnormal tenderness Uterus: soft, non-tender Baby A: Baby A baseline: 140 bpm Baby A variability: moderate 6-25 bpm Baby A accelerations: 15 X 15 Baby A FHR category: category 1 Diagnosis, Assessment Plan Diagnosis, Assessment Plan Assessment: status post betamethasone, s tatus post magnesium, IUP 34 2/7 weeks with labor and dilat ion with almost 100% thinning , short cervix, funic presentation, hypoplas tic nasal bone, AMA, prior CD x 1, on procardia GDM on insulin Plan: continue current managmnt, delivery (february 07 at 6:45am), surveillance, inpatient management for now due t o high risk of PPROM and premature delivery as well a s cord prolapse due to funic presentation, she lives an hour away with no appropriate NICU level avai lable Electronically Signed by Ky Dailey MD on 10/20 at 0840 RPT #:[id number] END OF REPORT 2023-01-26 17:47:00-00:[address] [facility] ([facility]) OB Antepartum Prog Note REPORT#:[id number] REPORT STATUS: Signed DATE:01/26/23 TIME: 1746 PATIENT: ELISHA HEAD UNIT #: [id number] ROOM/BED: [address] : 85 AGE: 37 SEX: F ATTEND: Ky Dailey MD ADM AUTHOR: Ky Dailey MD * ALL edits or amendments must be made on the Siterra/computer document * Subjective Subjective Patient reports: Patient reports: Yes normal movement, No no complaints, No abdominal pain, No vaginal bleeding, No leaking fluid, No contractions Comments: seen around 8am Objective Cervical/ exam: Dilatation (cm): 2 Effacement (%): 90 station: - 3 presentation: cephalic HEENT: normocephalic w/o injury Neuro: Exam: alert, oriented x3, normal speech Abdomen: gravid, soft, no abnormal tenderness Uterus: soft, non-tender Baby A: Baby A baseline: 140 bpm Baby A variability: moderate 6-25 bpm Baby A accelerations: 15 X 15 Baby A FHR category: category 1 Diagnosis, Assessment Plan Diagnosis, Assessment Plan Assessment: status post betamethasone, s tatus post magnesium, IUP 34 1/7 weeks with labor and dilat ion with almost 100% thinning , short cervix, funic presentation, hypoplas tic nasal bone, AMA, prior CD x 1, on procardia GDM on insulin Plan: continue current managmnt, delivery (february 07 at 6:45am), surveillance, inpatient management for now due t o high risk of PPROM and premature delivery as well a s cord prolapse due to funic presentation, she lives an hour away with no appropriate NICU level avai lable Electronically Signed by Ky Dailey MD on at 1748 RPT #:[id number] END OF REPORT 2023-01-25 13:42:00-00:00 [facility] ([facility]) OB Antepartum Prog Note REPORT#:[id number] REPORT STATUS: Signed DATE:01/25/23 TIME: 1342 PATIENT: ELISHA HEAD UNIT #: [id number] ROOM/BED: 5070-A : 85 AGE: 37 SEX: F ATTEND: Ky Dailey MD ADM AUTHOR: Ky Dailey MD * ALL edits or amendments must be made on the el [employer]ronic/computer document * Subjective Subjective Patient reports: Patient reports: Yes normal movement, No no complaints, No abdominal pain, No vaginal bleeding, No leaking fluid, No contractions Objective Nursing Documentation Review Nursing data: The data set between the solid lines has been im ported from nursing documentation. Any exceptions have been noted be low under Provider comments. ROM date: ROM time: Labor onset date: Labor onset time: Provider comments on imported nursing data: [] VS: Last Documented: Result Date Time B/P Mean 93.0 01/25 0819 Pulse Ox 99 01/25 0819 B/P 119/77 01/25 0819 Pulse 89 01/25 0819 Temp 98.3 01/22 1640 Resp 16 01/22 1640 Vital Signs Date Temp Pulse Resp B/P B/P Mean Pulse Ox FiO2 01/24-01/25 82-89 97-119/49-77 71.0-93.0 99 PATIENT WEIGHT: Weight (lb): 216 Weight (oz): Weight (kg): 98.200 Cervical/ exam: Dilatation (cm): 2 Effacement (%): 90 station: - 3 presentation: cephalic HEENT: normocephalic w/o injury Neuro: Exam: alert, oriented x3, normal speech Abdomen: gravid, soft, no abnormal tenderness Uterus: soft, non-tender Baby A: Baby A baseline: 140 bpm Baby A variability: moderate 6-25 bpm Baby A accelerations: 15 X 15 Baby A FHR category: category 1 Diagnosis, Assessment Plan Diagnosis, Assessment Plan Free Text A P: ULTRASOUND; CEPHALIC, ANTRERIOR PLACENTA, EFW 20 20 GMS AT 17%, HYPOPLASTIC NASAL BONE, AGUEDA 19 cm, BPP 8 /8, NL UA DOPPLERS, TACL 20 MM WITH LARGE FUNNELING FUNIC PRESENTATION Assessment: status post betamethasone, s tatus post magnesium, IUP 34 0/7 weeks with labor and dilat ion with almost 100% thinning , short cervix, funic presentation, hypoplas tic nasal bone, AMA, prior CD x 1, on procardia GDM on insulin Plan: continue current managmnt, delivery (february 07 at 6:45am), surveillance, inpatient management for now due t o high risk of PPROM and premature delivery as well a s cord prolapse due to funic presentation, she lives an hour away with no appropriate NICU level avai lable Electronically Signed by Ky Dailey MD on at 1343 RPT #:[id number] END OF REPORT 2023-01-25 13:39:00-00:00 [facility] ([facility]) [facility] Consultation Note REPORT#:[id number] REPORT STATUS: Signed DATE:01/25/23 TIME: 1339 PATIENT: ELISHA HEAD UNIT #: [id number] ROOM/BED: [address] : 85 AGE: 37 SEX: F ATTEND: Ky Dailey MD ADM AUTHOR: Ky Dailey MD * ALL edits or amendments must be made on the Siterra/computer document * History Past History Allergies: Coded Allergies: No Known Drug Allergies (Mild, NONE 01/15/23) Diagnosis, Assessment Plan Diagnosis, Assessment Plan Free Text A P: ULTRASOUND; CEPHALIC, ANTRERIOR PLACENTA, EFW 20 20 GMS AT 17%, HYPOPLASTIC NASAL BONE, AGUEDA 19 cm, BPP 8 /8, NL UA DOPPLERS, TACL 20 MM WITH LARGE FUNNELING FUNIC PRESENTATION Electronically Signed by Ky Dailey MD on at 1341 RPT #:[id number] END OF REPORT 2023-01-24 12:05:00-00:00 [facility] ([facility]) OB Antepartum Prog Note REPORT#:[id number] REPORT STATUS: Signed DATE:01/24/23 TIME: 1205 PATIENT: ELISHA HEAD UNIT #: [id number] ROOM/BED: [facility] : 85 AGE: 37 SEX: F ATTEND: Ky Dailey MD ADM AUTHOR: Ky Dailey MD * ALL edits or amendments must be made on the Siterra/Wacai document * Subjective Subjective Patient reports: Patient reports: Yes normal movement, No no complaints, No abdominal pain, No vaginal bleeding, No leaking fluid, No contractions Objective VS: Last Documented: Result Date Time B/P Mean 96.0 01/24 0854 Pulse Ox 100 01/24 0854 B/P 132/71 01/24 0854 Pulse 86 01/24 0854 Temp 98.3 01/22 1640 Resp 16 01/22 1640 Vital Signs Date Temp Pulse Resp B/P B/P Mean Pulse Ox FiO 2 01/23-01/24 82-87 128-132/71-79 96.0-98.0 100 PATIENT WEIGHT: Weight (lb): 216 Weight (oz): Weight (kg): 98.200 Cervical/ exam: Dilatation (cm): 2 Effacement (%): 90 station: - 3 presentation: cephalic HEENT: normocephalic w/o injury Cardiac: no clinically sig murmur Lungs: clear to auscultation Neuro: Exam: alert, oriented x3, normal speech Abdomen: gravid, soft, no abnormal tenderness Uterus: soft, non-tender Baby A: Baby A baseline: 140 bpm Baby A variability: moderate 6-25 bpm Baby A accelerations: 15 X 15 Baby A FHR category: category 1 Diagnosis, Assessment Plan Diagnosis, Assessment Plan Assessment: status post betamethasone, s tatus post magnesium, IUP 34 0/7 weeks with labor and dilat ion with almost 100% thinning , short cervix, funic presentation, hypoplas tic nasal bone, AMA, prior CD x 1, on procardia, GDM on insulin Plan: continue current managmnt, delivery, betam ethasone admin, surveillance, inpatient management for now due t o high risk of PPROM and premature delivery as well a s cord prolapse due to funic presentation, she [place] with no [facility], patient wants to deliver at 36 weeks, will schedule it Electronically Signed by Ky Dailey MD on at 1208 RPT #:[id number] END OF REPORT 2023-01-23 08:26:00-00:00 [facility] ([facility]) OB Antepartum Prog Note REPORT#:[id number] REPORT STATUS: Signed DATE:01/23/23 TIME: 825 PATIENT: ELISHA HEAD UNIT #: [id number] ROOM/BED: [address] : 85 AGE: 37 SEX: F ATTEND: Ky Dailey MD ADM AUTHOR: Jasson Bull MD * ALL edits or amendments must be made on the Siterra/computer document * Subjective Subjective Patient reports: Patient reports: Yes normal movement, No vaginal bleeding, No leaking fluid, No contractions Objective Membranes: Intact Cervical/ exam: Dilatation (cm): 2 Effacement (%): 90 station: - 3 presentation: cephalic HEENT: normocephalic w/o injury Cardiac: no clinically sig murmur Lungs: clear to auscultation Neuro: Exam: alert, oriented x3, normal speech Abdomen: gravid, soft, no abnormal tenderness Uterus: soft, non-tender Baby A: Baby A baseline: 140 bpm Baby A variability: moderate 6-25 bpm Baby A accelerations: 15 X 15 Baby A FHR category: category 1 Diagnosis, Assessment Plan Diagnosis, Assessment Plan Free Text A P: Assessment: status post betamethasone, s tatus post magnesium, IUP 33 6/7 weeks with labor and dilat ion with almost 100% thinning , short cervix, funic presentation, hypoplastic nasal bone, AMA, prior CD x 1, on procardia Plan: continue current manag mnt, delivery (if conditions worsen), betamethasone admin, surveillance, inpatient management for now due to high risk of PPROM and premature delivery as well as cord prolapse due to funic presentation, she lives an hour away with no appropriate NICU level available Assessment: status post betamethasone, s tatus post magnesium, IUP 33 3/7 weeks with labor and dilat ion with almost 100% thinning , short cervix, funic presentation, hypoplastic nasal bone, AMA, prior CD x 1, on procardia insulin dose reduced to 10 units good controll Plan: continue current manag mnt, delivery (if conditions worsen), betamethasone admin, surveillance, inpatient management for now due to high risk of PPROM and premature delivery as well as cord prolapse due to funic presentation, she lives an hour away with no appropriate NICU level available Assessment: status post betamethasone, s tatus post magnesium, IUP 33 3/7 weeks with labor and dilat ion with almost 100% thinning , short cervix, funic presentation, hypoplastic nasal bone, AMA, prior CD x 1, on procardia Plan: continue current manag mnt, delivery (if conditions worsen), betamethasone admin, surveillance, inpatient management for now due to high risk of PPROM and premature delivery as well as cord prolapse due to funic presentation, she lives an hour away with no appropriate NICU level available Electronically Signed by Jasson Bull MD on 0 01/23/23 at 0828 RPT #:[id number] END OF REPORT 2023-01-22 22:44:00-00:00 [facility] ([facility]) OB Antepartum Prog Note REPORT#:[id number] REPORT STATUS: Signed DATE:01/22/23 TIME: 2243 PATIENT: ELISHA HEAD UNIT #: [id number] ROOM/BED: [facility]-A : 85 AGE: 37 SEX: F ATTEND: Ky Dailey MD ADM AUTHOR: Gary Judge MD * ALL edits or amendments must be made on the el ectronic/computer document * Subjective Subjective Patient reports: Patient reports: Yes normal movement, Yes new complaints ( Some hypoglycemias), No no complaints, No abdominal pain, No vaginal bleedi ng, No leaking fluid, No contractions, No headache, N o blurred vision, No scotomata, No fever, No chills Objective Nursing Documentation Review Nursing data: The data set between the solid lines has been im ported from nursing documentation. Any exceptions have been noted be low under Provider comments. ROM date: ROM time: Labor onset date: Labor onset time: Provider comments on imported nursing data: [] VS: Last Documented: Result Date Time B/P Mean 73.0 01/22 1935 B/P 101/58 01/22 1935 Pulse 79 01/22 1935 Temp 98.3 01/22 1640 Resp 16 01/22 1640 Pulse Ox 98 01/22 0835 Vital Signs Date Temp Pulse Resp B/P B/P Mean Pulse Ox FiO2 01/22 97.6-99.3 72-96 16 101-131/58-76 73.0-95. 0 95-100 PATIENT WEIGHT: Weight (lb): 216 Weight (oz): Weight (kg): 98.200 Medications: Active Meds + DC'd Last 24 Hrs Insulin Glargine (LANTUS/SEMGLEE INSULIN 100 UNI TS/ML) 10 UNIT BEDTIME SUBQ Insulin Glargine (LANTUS/SEMGLEE INSULIN 100 UNI TS/ML) 20 UNIT BEDTIME SUBQ (DC) Nifedipine (ADALAT 10 MG CAP) 10 MG Q8H PO Multivit/Folic Acid/Iron ( [place] min Tablet) 1 TAB DAILY PO Zolpidem Tartrate (AMBIEN 5 MG UDTAB) 5 MG BEDTI ME PRN PRN PO Docusate Sodium (DOCUSATE SODIUM 100 MG CAP) 100 MG Q12HR PO Sertraline HCl (ZOLOFT 50 MG TAB) 50 MG BEDTIME PO Dextrose (Glutose-15 (40%)) 37.5 ML Q15M PRN PRN BUCCAL Dextrose/Water (DEXTROSE 50% IN WATER 50 ML SYR) 50 ML ASDIR PRN IV (CKD ) Glucagon (GLUCAGON 1 MG/VIAL) 1 MG ASDIR PRN IM Insulin Human Lispro (HumaLOG 3ML VIAL) SLIDING SCALE ASDIR SUBQ Acetaminophen (ACETAMINOPHEN 325 MG TAB) 650 MG Q4H PRN PRN PO Al Hydrox/Mg Hydrox/Simethicone (MYLANTA 30 ML S SENIOR LIVING) 30 ML Q4H PRN PRN PO Calcium Gluconate (CA GLUCONATE 1 GM/10 ML VIAL) 1,000 MG BOLUS ASDIR PRN IV Lactated Ringer's (LACTATED RINGERS) 1,000 ML .Q 13H20M IV Magnesium Hydroxide (MILK OF MAGNESIA 30 ML UD) 30 ML Q6H PRN PRN PO Ondansetron Base (ZOFRAN ODT 4MG) 4 MG Q4H PRN P RN PO Ondansetron HCl (ZOFRAN 2 MG/ML 4 MG SYR) 4 MG Q 4H PRN PRN IV Polyethylene Glycol (POLYETHYLENE GLYCOL PKT) 17 GM DAILY PRN PRN PO Promethazine HCl (PHENERGAN 25 MG SUPP) 25 MG Q6 H PRN PRN RECTAL Membranes: Intact Cervical/ exam: Dilatation (cm): 2 Effacement (%): 90 station: - 3 presentation: cephalic HEENT: normocephalic w/o injury Cardiac: no clinically sig murmur Lungs: clear to auscultation Neuro: Exam: alert, oriented x3, normal speech Abdomen: gravid, soft, no abnormal tenderness Uterus: soft, non-tender Baby A: Baby A baseline: 140 bpm Baby A variability: moderate 6-25 bpm Baby A accelerations: 15 X 15 Baby A FHR category: category 1 Findings/data: Laboratory Tests: 01/22 01/22 01/22 01/22 01/22 1934 1404 1105 0606 0319 Chemistry POC Glucose (65 - 110 mg/dL) 94 113 H 63 L 72 8 0 Diagnosis, Assessment Plan Diagnosis, Assessment Plan Free Text A P: A/P 1- SIUP 33 5/7 weeks 2- Threatened PTL /Cervical shortening 3- Funic presentation, 4- H/O hypoplastic nasal bone, 5- AMA, 6- Prior CD x 1 7- A2 GDM on insulin 8- Psoariasis Plan: 1-Decrease PM insulin to 18 2-Continue current managmnt, delivery (if condit ions worsen), 3-Inpatient management for n ow due to high risk of PPROM and premature delivery as well as cord prolapse due to funic presentation, she lives an [place] away with no appropriate NICU level available Assessment: status post betamethasone, s tatus post magnesium, IUP 33 3/7 weeks with labor and dilat ion with almost 100% thinning , short cervix, funic presentation, hypoplastic nasal bone, AMA, prior CD x 1, on procardia Plan: continue current manag mnt, delivery (if conditions worsen), betamethasone admin, surveillance, inpatient management for now due to high risk of PPROM and premature delivery as well as cord prolapse due to funic presentation, she lives an hour away with no appropriate NICU level available Electronically Signed by Gary Judge MD on at 2300 RPT #:[id number] END OF REPORT 2023-01-21 08:28:00-00:00 [facility] ([facility]) OB Antepartum Prog Note REPORT#:[id number] REPORT STATUS: Signed DATE:01/21/23 TIME: 827 PATIENT: ELISHA HEAD UNIT #: [id number] ROOM/BED: [facility]70A : 85 AGE: 37 SEX: F ATTEND: Ky Dailey MD ADM AUTHOR: Jasson Bull MD * ALL edits or amendments must be made on the Siterra/computer document * Subjective Subjective Patient reports: Patient reports: Yes normal movement, No abdominal pain, No vaginal bleeding, No leaking fluid, No contractions Objective Membranes: Intact Cervical/ exam: Dilatation (cm): 2 Effacement (%): 90 station: - 3 presentation: cephalic HEENT: normocephalic w/o injury Cardiac: no clinically sig murmur Lungs: clear to auscultation Neuro: Exam: alert, oriented x3, normal speech Abdomen: gravid, soft, no abnormal tenderness Uterus: soft, non-tender Baby A: Baby A baseline: 140 bpm Baby A variability: moderate 6-25 bpm Baby A accelerations: 15 X 15 Baby A FHR category: category 1 Diagnosis, Assessment Plan Diagnosis, Assessment Plan Free Text A P: Assessment: status post betamethasone, s tatus post magnesium, IUP 33 4/7 weeks with labor and dilat ion with almost 100% thinning , short cervix, funic presentation, hypoplastic nasal bone, AMA, prior CD x 1, on procardia Plan: continue current manag mnt, delivery (if conditions worsen), betamethasone admin, surveillance, inpatient management for now due to high risk of PPROM and premature delivery as well as cord prolapse due to funic presentation, she lives an hour away with no appropriate NICU level available Assessment: status post betamethasone, s tatus post magnesium, IUP 33 3/7 weeks with labor and dilat ion with almost 100% thinning , short cervix, funic presentation, hypoplastic nasal bone, AMA, prior CD x 1, on procardia Plan: continue current manag mnt, delivery (if conditions worsen), betamethasone admin, surveillance, inpatient management for now due to high risk of PPROM and premature delivery as well as cord prolapse due to funic presentation, she lives an hour away with no appropriate NICU level available Electronically Signed by Jasson Bull MD on 0 01/21/23 at 0829 RPT #:[id number] END OF REPORT 2023-01-20 09:20:00-00:00 [facility] ([facility]) OB Antepartum Prog Note REPORT#:[id number] REPORT STATUS: Signed DATE:01/20/23 TIME: 919 PATIENT: ELISHA HEAD UNIT #: [id number] ROOM/BED: [facility]70A : 85 AGE: 37 SEX: F ATTEND: Ky Dailey MD ADM AUTHOR: Ky Dailey MD * ALL edits or amendments must be made on the Siterra/computer document * Subjective Subjective Patient reports: Patient reports: Yes normal movement, No no complaints, No abdominal pain, No vaginal bleeding, No leaking fluid, No contractions Objective VS: Last Documented: Result Date Time B/P Mean 89.0 01/20 0810 B/P 118/72 01/20 0810 Pulse 98 01/20 0810 Pulse Ox 95 01/20 0809 Temp 98.4 01/19 193 Resp 17 01/19 193 Vital Signs Date Temp Pulse Resp B/P B/P Mean Pulse Ox FiO2 01/19-01/20 98.4-99.3 73-98 17 113-133/54-82 78 .0-101.0 94-100 PATIENT WEIGHT: Weight (lb): 216 Weight (oz): Weight (kg): 98.200 Cervical/ exam: presentation: cephalic HEENT: normocephalic w/o injury Neuro: Exam: alert, oriented x3, normal speech Abdomen: gravid, soft, no abnormal tenderness Uterus: soft, non-tender Baby A: Baby A baseline: 140 bpm Baby A variability: moderate 6-25 bpm Baby A accelerations: 15 X 15 Baby A FHR category: category 1 Diagnosis, Assessment Plan Diagnosis, Assessment Plan Assessment: status post betamethasone, s tatus post magnesium, IUP 33 3/7 weeks with labor and dilat ion with almost 100% thinning , short cervix, funic presentation, hypoplastic nasal bone, AMA, prior CD x 1, on procardia Plan: continue current manag mnt, delivery (if conditions worsen), betamethasone admin, surveillance, inpatient management for now due to high risk of PPROM and premature delivery as well as cord prolapse due to funic presentation, she lives an hour away with no appropriate NICU level available Electronically Signed by Ky aDiley MD on at 0920 RPT #:[id number] END OF REPORT 2023-01-19 11:28:00-00:00 [id number] [facility] [address] [place], [place] [address] PATIENT NAME: ELISHA HEAD ADMIT DATE: 01/15/23 ACCOUNT NO: [id number] ROOM NO: [facility] AGE: 37 SEX: F ADMITTING PHYSICIAN: Ky Dailey MD ATTENDING PHYSICIAN: Ky Dailey MD [facility] Consult Elisha Head PAC: [id number] Note Date: 01/19/2023 Note Time: 09:00:00 Place of Service: InPatient Requested By: Minh Knight Reason for Consultation: Reconsultation at 33 wg a per mother's request Maternal History : 1985 Mother's Age: 37 Mother's Blood Type: A Pos Mother's Race: White P: 1 A: 1 RPR Serology: Non-Reactive HIV: Negative Rubella : Unknown GBS: Unknown HBsAg: Negative Care: Yes EDC OB: 03/07/2023 Complications Bleeding, 3rd trimester (O46.93) Advanced Maternal Age, multigravida, 3rd trimest er (O09.523) Cervical shortening, 3rd trimester (O26.873) Type 1 diabetes, pre-existing 3rd trimester (O24 .013) Maternal Steroids: Yes Last Dose Date: 01/15/2023 Next Recent Dose Date : 01/16/2023 Maternal Medications: Yes Betamethasone Magnesium Sulfate Azithromycin Ampicillin Insulin Comment Remains inpatient Present Plan PATIENT NAME: ELISHA HEAD 20 Observation, s/p BMZ x2, expectant management Discussion/Counseling I revisited this consultation per mother's reque st and answered her questions regarding expected stay at 33 and 34 wee ks as well as complications related to prematurity at this age. All questions were answ ered. Recommendations Continue current plan of care. Please feel free to ask our team to revisit consultation if mother has further questions. Total clinician time devoted to the maki ent on the day of this visit excluding time spent on other separately reported services was 40 minutes. Authenticated by: KEENAN VALLES DO Date/Time: 01/19/2023 11:28 Authenticated by Keenan Valles DO On 2022 11:31:49 PM Electronically Signed by Keenan Valles DO o n 01/20/23 at 1131 PATIENT NAME: ELISHA HEAD 420 2023-01-19 08:13:00-00:00 [facility] ([facility]) MFM Consultation Note REPORT#:[id number] REPORT STATUS: Signed DATE:01/19/23 TIME: 812 PATIENT: ELISHA HEAD UNIT #: [id number] ROOM/BED: [address] : 85 AGE: 37 SEX: F ATTEND: Ky Dailey MD ADM AUTHOR: Ky Dailey MD * ALL edits or amendments must be made on the Siterra/computer document * History Past History Allergies: Coded Allergies: No Known Drug Allergies (Mild, NONE 01/15/23) Diagnosis, Assessment Plan Diagnosis, Assessment Plan Free Text A P: ULTRASOUND; CEPHALIC, ANTRERIOR PLACENTA, EFW 19 72 GMS AT 20%, HYPOPLASTIC NASAL BONE, AGUEDA 10 cm, BPP 8 /8, NL UA DOPPLERS, TACL 10 MM WITH LARGE FUNNELING FUNIC PRESENTATION Electronically Signed by Ky Dailey MD on at 0814 RPT #:[id number] END OF REPORT 2023-01-19 08:12:00-00:00 [facility] ([facility]) OB Antepartum Prog Note REPORT#:[id number] REPORT STATUS: Signed DATE:01/19/23 TIME: 811 PATIENT: ELISHA HEAD UNIT #: [id number] ROOM/BED: [address] : 85 AGE: 37 SEX: F ATTEND: Ky Dailey MD ADM AUTHOR: Ky Dailey MD * ALL edits or amendments must be made on the Siterra/Wacai document * See Addendum Subjective Subjective Patient reports: Patient reports: Yes normal movement, No no complaints, No abdominal pain, No vaginal bleeding, No leaking fluid, No contractions Objective VS: Last Documented: Result Date Time B/P Mean 96.0 01/19 0554 Pulse Ox 100 01/19 0554 B/P 129/73 01/19 0554 Pulse 75 01/19 0554 Temp 99.1 01/18 1939 Resp 16 01/18 1939 Vital Signs Date Temp Pulse Resp B/P B/P Mean Pulse Ox FiO2 01/18-01/19 98.2-99.1 63-82 16-18 116-141/64-75 84.0-99.0 98-100 PATIENT WEIGHT: Weight (lb): 216 Weight (oz): Weight (kg): 98.200 Cervical/ exam: Dilatation (cm): 2 Effacement (%): 90 station: - 3 presentation: cephalic HEENT: normocephalic w/o injury Neuro: Exam: alert, oriented x3, normal speech Abdomen: gravid, soft, no abnormal tenderness Uterus: soft, non-tender Baby A: Baby A baseline: 140 bpm Baby A variability: moderate 6-25 bpm Baby A accelerations: 15 X 15 Baby A FHR category: category 1 Diagnosis, Assessment Plan Diagnosis, Assessment Plan Free Text A P: ULTRASOUND; CEPHALIC, ANTRERIOR PLACENTA, EFW 19 72 GMS AT 20%, HYPOPLASTIC NASAL BONE, AGUEDA 10 cm, BPP 8 /8, NL UA DOPPLERS, TACL 10 MM WITH LARGE FUNNELING FUNIC PRESENTATION Assessment: status post betamethasone, s tatus post magnesium, IUP 33 2/7 weeks with labor and dilat ion with almost 100% thinning , short cervix, funic presentation, hypoplastic nasal bone, AMA, prior CD x 1, on procardia Plan: continue current manag mnt, delivery (if conditions worsen), betamethasone admin, surveillance, inpatient management for now due to high risk of PPROM and premature delivery as well as cord prolapse due to funic presentation, she lives an hour away with no appropriate NICU level available Electronically Signed by Ky Dailey MD on at 0815 Addendum 1: 01/19/23 0857 by Ky Dailey MD will cut down on insulin due to hhypoglycemia Electronically Signed by Ky Dailey MD on at 0858 RPT #:[id number] END OF REPORT 2023-01-18 08:46:00-00:00 [facility] ([facility]) OB Antepartum Prog Note REPORT#:[id number] REPORT STATUS: Signed DATE:01/18/23 TIME: 08 PATIENT: ELISHA HEAD UNIT #: [id number] ROOM/BED: [address] : 85 AGE: 37 SEX: F ATTEND: Yaya Dailey MD ADM AUTHOR: Ky Dailey MD * ALL edits or amendments must be made on the Siterra/Wacai document * Subjective Subjective Patient reports: Patient reports: Yes normal movement, No no complaints, No abdominal pain, No vaginal bleeding, No leaking fluid, No contractions Comments: she had 5 CTX yesterday nigh t but none now, she is concerned to go home because she lives an hour away with no approproate NICU level for her baby Objective VS: Last Documented: Result Date Time B/P Mean 103.0 01/18 0616 B/P 143/73 01/18 0616 Pulse 73 01/18 0616 Pulse Ox 100 01/18 0615 Temp 99.0 01/17 1601 Resp 18 01/17 1601 Vital Signs Date Temp Pulse Resp B/P B/P Mean Pulse Ox FiO2 01/17-01/18 98.1-99.0 67-106 16-18 106-143/59-77 79.0-103.0 90-100 PATIENT WEIGHT: Weight (lb): 216 Weight (oz): Weight (kg): 98.200 Cervical/ exam: Dilatation (cm): 2 Effacement (%): 90 station: - 3 presentation: cephalic HEENT: normocephalic w/o injury Neuro: Exam: alert, oriented x3, normal speech Abdomen: gravid, soft, no abnormal tenderness Baby A: Baby A baseline: 140 bpm Baby A variability: moderate 6-25 bpm Baby A accelerations: 15 X 15 Baby A FHR category: category 1 Diagnosis, Assessment Plan Diagnosis, Assessment Plan Assessment: status post betamethasone, s tatus post magnesium, IUP 33 1/7 weeks with labor and dilat ion with almost 100% thinning , short cervix, funic presentation, hypoplastic nasal bone, AMA, prior CD x 1, on procardia Plan: continue current manag mnt, delivery (if conditions worsen), betamethasone admin, surveillance, inpatient management for now due to high risk of PPROM and premature delivery as well as cord prolapse due to funic presentation, she lives an hour away with no appropriate NICU level available Electronically Signed by Ky Dailey MD on at 0850 RPT #:[id number] END OF REPORT 2023-01-17 08:32:00-00:00 [facility] ([facility]) OB Antepartum Prog Note REPORT#:[id number] REPORT STATUS: Signed DATE:01/17/23 TIME: 0832 PATIENT: ELISHA HEAD UNIT #: [id number] ROOM/BED: [address] : 85 AGE: 37 SEX: F ATTEND: Ky Dailey MD ADM AUTHOR: Ky Dailey MD * ALL edits or amendments must be made on the Siterra/computer document * Subjective Subjective Patient reports: Patient reports: Yes normal movement, No no complaints, No abdominal pain, No vaginal bleeding, No leaking fluid, No contractions Comments: SHE HAD 4 CONTRACTTIONS RECENLY BUT NONE NOW, SO ME MINIMAL RED BLOOD BUT NONE NOW Objective Cervical/ exam: Dilatation (cm): 2 Effacement (%): 90 station: - 3 presentation: cephalic HEENT: normocephalic w/o injury Neuro: Exam: alert, oriented x3, normal speech Abdomen: gravid, soft, no abnormal tenderness Baby A: Baby A baseline: 140 bpm Baby A variability: moderate 6-25 bpm Baby A accelerations: 15 X 15 Baby A FHR category: category 1 Diagnosis, Assessment Plan Diagnosis, Assessment Plan Assessment: IUP 33 0/7 weeks with labor and dilation , short cervix, funic presentation, hypoplastic nasal bone , AMA, prior CD x 1 Plan: continue current manag mnt, delivery (if conditions worsen), betamethasone admin, magnesium sulfate, fe israel surveillance, antiobiotics will decrease mag to 1 g/h at 1 pm then stop it t omorrow, since her cervix is very thin, STOP MAG AT 1PM, START PROCARDIA Electronically Signed by Ky Dailey MD on at 0834 RPT #:[id number] END OF REPORT 2023-01-16 08:48:00-00:00 [facility] OB Antepartum Prog Note REPORT#:[id number] REPORT STATUS: Signed DATE:01/16/23 TIME: 0848 PATIENT: ELISHA HEAD UNIT #: [id number] ROOM/BED: [facility] : 85 AGE: 37 SEX: F ATTEND: Ky Dailey MD ADM AUTHOR: Ky Dailey MD * ALL edits or amendments must be made on the Siterra/computer document * Subjective Subjective Patient reports: Patient reports: Yes normal movement, No no complaints, No abdominal pain, No vaginal bleeding, No leaking fluid, No contractions Comments: very minimal arjesh kapadia Objective Nursing Documentation Review Nursing data: The data set between the solid lines has been im ported from nursing documentation. Any exceptions have been noted be low under Provider comments. ROM date: ROM time: Labor onset date: Labor onset time: Provider comments on imported nursing data: [] VS: Last Documented: Result Date Time B/P Mean 89.0 01/16 0702 Pulse Ox 91 01/16 0702 B/P 131/65 01/16 0702 Pulse 86 01/16 0702 Resp 20 01/16 0502 Temp 97.8 01/16 0202 Vital Signs Date Temp Pulse Resp B/P B/P Mean Pulse Ox FiO2 01/15-01/16 97.8-98.4 39-126 18-20 89-136/51-89 62.0-106.0 83-100 PATIENT WEIGHT: Weight (lb): 216 Weight (oz): Weight (kg): 98.200 Cervical/ exam: Dilatation (cm): 2 Effacement (%): 90 station: - 3 presentation: cephalic HEENT: normocephalic w/o injury Neuro: Exam: alert, oriented x3, normal speech Abdomen: gravid, soft, no abnormal tenderness Baby A: Baby A baseline: 140 bpm Baby A variability: moderate 6-25 bpm Baby A accelerations: 15 X 15 Baby A FHR category: category 1 Diagnosis, Assessment Plan Diagnosis, Assessment Plan Assessment: IUP 32 6/7 weeks with labor and dilation , short cervix, funic presentation, hypoplastic nasal bone , AMA, prior CD x 1 Plan: continue current manag mnt, delivery (if conditions worsen), betamethasone admin, magnesium sulfate, fe israel surveillance, antiobiotics, will decrease mag to 1 g/h at 1 pm then stop it tomorrow, since her c ervix is very thin Electronically Signed by Ky Dailey MD on at 0853 RPT #:[id number] END OF REPORT 2023-01-15 15:45:00-00:00 [id number] [facility] [address] [place], [place] [address] PATIENT NAME: ELISHA HEAD ADMIT DATE: 01/15/23 ACCOUNT NO: [id number] ROOM NO: F.5070 AGE: 37 SEX: F ADMITTING PHYSICIAN: Ky Dailey MD ATTENDING PHYSICIAN: Ky Dailey MD [facility] Consult Elisha Head PAC: [id number] Note Date: 01/15/2023 Note Time: 15:00:00 Place of Service: InPatient Requested By: Minh Knight Reason for Consultation: 32.5 wk, IDDM, bleeding , hypoplastic nasal bone Maternal History : 1985 Mother's Age: 37 Mother's Blood Type: A Pos Mother's Race: White P: 1 A: 1 RPR Serology: Non-Reactive HIV: Negative Rubella : Unknown GBS: Unknown HBsAg: Negative Care: Yes EDC OB: 03/07/2023 Complications Bleeding, 3rd trimester (O46.93) Advanced Maternal Age, multigravida, 3rd trimest er (O09.523) Cervical shortening, 3rd trimester (O26.873) Type 1 diabetes, pre-existing 3rd trimester (O24 .013) 32 weeks gestation of (Z3A.32) Maternal Steroids: Yes Last Dose Date: 01/15/2023 Next Recent Dose Date : 01/16/2023 Maternal Medications: Yes Betamethasone Magnesium Sulfate Azithromycin Ampicillin Insulin Discussion/Counseling I have reviewed the mother`s medical chart. I me t with the mother. The baby's PATIENT NAME: ELISHA HEAD 20 name will be [place]. I reviewed the most common problems encountered for babies born at 32 weeks gestation, stressing that all babies are differe nt, and the chances of complications tend to lessen at advancing gestational ages. While most any organ system can have a complication, the absolute ris k of severe complications is very low and the opportunity for a good outcome is high. Among infants admitted to the NICU, survival is approximately 99% and s urvival without severe complications is very high. I discussed the delivery brandon m management, and explained the personnel that will be present at delivery. I reviewed the plan for delayed cord clamping (if appropriate) and thermoregulation support. Most infants at this age need some respiratory support, commonl y CPAP, though some need mechanical ventilation. We also discussed the use of ar tificial surfactant, which may or may not be needed. Some infants need other measures in their resusc itation (e.g. CPR, fluid, blood). I reviewed the typical cares given during admiss ion to the NICU. Infants at this gestation typically need IV access and that may be an umbilical catheter(s), PICC line or peripheral IV to allow nutrition. When sufficiently stable, gavage feedings will be started. We disc ussed the critical importance of to optimize out come (improved neurodevelopment, reduced risk of NEC and infections among other things). We discussed how we will support mother s . We discussed common discharge goals, inc luding mature thermoregulation, mature respiratory status and abili ty to thrive on oral feedings. Many infants achieve this around 36-39 weeks corrected gestation, alt vadim some infants are ready sooner and some take longer. Time was allotted for the family to ask question s, and all questions were answered to the best of my ability, give n the information provided. The family understands and agrees with the present plan. Thank you for inviting me to speak with the family. We remain available if the family desires further discussion or clarificati on. Total clinician time devoted to the maki ent on the day of this visit excluding time spent on other separately reported services was 30 minutes. Authenticated by: ANDRES CHRISTIANSON MD Date/Time: 01/15/2023 15:45 Authenticated by Andres Christianson MD On 01/15/2023 10:22:11 PM Electronically Signed by Andres Christianson MD on at 1022 PATIENT NAME: ELISHA HEAD 2023-01-15 11:52:00-00:00 [facility] ([facility]) OB Admission / H P REPORT#:[id number] REPORT STATUS: Signed DATE:01/15/23 TIME: 1152 PATIENT: ELISHA HEAD UNIT #: [id number] ROOM/BED: [facility]-A : 85 AGE: 37 SEX: F ATTEND: Ky Dailey MD ADM AUTHOR: Ky Dailey MD * ALL edits or amendments must be made on the [employer]/computer document * See Addendum OB History Chief complaint: uterine contractions, vaginal b leeding HPI: 37 y old at 32 5/7 week s who had a gush of blood around 5:30 am and woke up with contractions every few min. She came to [facility] and she was having CTX every 2 min. Terb and Mag as well as celestone and ATBx were ordered but none was given. She feels ok now, CTX spaced out but she is stil l cramping. - BL, - LOF, she reported good FM PNC: AMA, previa resolved, s hort cervix on progesterone, GDM on insulin, she has had vag bleeding in the past s/p celestone course at 30 weeks, HYPOPLASTIC NASAL BONE LOW RISK NIPT DECLINED AMNIO POHx: CD x 1 , EAB x 1 medical treatment Past History Additional Medical History: advanced mat age, low risk N IPT, she declined amnio, prior h/o preE at 38 weeks , anxiety Past Surgical History: Reports: . Additional Surgical History: BARIATRIC SURGERY, [facility] for abnormal PAP Family History Denies: Abdominal aortic aneurysm, Anemia, Asthm a, CAD < 40 yrs old, Cancer, Coagulopathy, Dementia/Alzheimer's dis, Depressi on/mood disorder, Diabetes, Heart disease, Hypertension, Kidney disease/stones, Seizure disorder, Stroke/TIA , Subarachnoid hemorrhage, S udden cardiac , Thyroid disorder, , Connective tissue dis, Gallbladder disease, Hyperlipidemia, Neurofibromatosis, Sickle cell disease. Alcohol Use Denies EtOH use Drug Use Denies recreational drugs Smoking status for patients 13 years old or olde r: Never Smoker Allergies: Coded Allergies: No Known Drug Allergies (Mild, NONE 01/15/23) Review of Systems Constitutional: Denies: chills. Skin: Denies: abrasion. Allergy/Immun: Denies: allergic reaction. Eyes: Denies: redness. ENT: Denies: ear drainage. Respiratory: Denies: PALACIOS (dyspnea on exertion). Cardiovascular: Denies: chest pain. GI: Denies: abdominal pain. : Denies: dysuria. Musculoskeletal: Denies: arthritis, extremity pain, extremity swe lling, joint pain, joint swelling, lumbar pain, myalgias, neck pain, thor acic pain, other. Heme: Denies: adenopathy. Objective General VS: Last Documented: Result Date Time B/P Mean 101.0 01/15 0858 B/P 128/85 01/15 0858 Pulse 85 01/15 0858 Vital Signs Date Temp Pulse Resp B/P B/P Mean Pulse Ox FiO2 01/15 85 128/ 101.0 PATIENT WEIGHT: Weight (lb): 216 Weight (oz): Weight (kg): 97.725499 Physical Exam HEENT: normocephalic w/o injury Cardiac: no clinically sig murmur Lungs: clear to auscultation Breasts: deferred Neuro: Exam: alert, oriented x3, normal speech Abdomen: gravid, soft, no abnormal tenderness Pelvic exam: Pelvis clinically adequate: yes Cervical/ exam: Dilatation (cm): 2 Effacement (%): 90 station: - 3 presentation: cephalic Membranes: Membranes: Intact Baby A: Baby A baseline: 140 bpm Baby A variability: moderate 6-25 bpm Baby A accelerations: 15 X 15 Baby A FHR category: category 1 Results Findings/Data: Laboratory Tests: 01/15 0900 Urines Urine Color (YELLOW) YELLOW Urine Appearance (CLEAR) CLEAR Urine pH (5 - 9) 7.0 Ur Specific [place] (1.001 - 1.035) 1.005 Urine Protein (NEG) NEGATIVE Urine Glucose (UA) (NEG) NEGATIVE Urine Ketones (NEG) NEGATIVE Urine Blood (NEG) 3+ H Urine Nitrite (NEG) NEG Urine Bilirubin (NEG) NEGATIVE Urine Urobilinogen (NEG mg/dL) NEGATIVE Ur Leukocyte Esterase (NEG) 2+ H Urine RBC (NONE SEEN #/hpf) TOO NUMEROUS TO CNT H Urine WBC (NONE SEEN #/hpf) 16-20 H Ur Epithelial Cells (RARE - FEW #/HPF) RARE Urine Bacteria (RARE - FEW /HPF) RARE Urine Mucus (NONE SEEN) RARE Diagnosis, Assessment Plan Diagnosis, Assessment Plan Free Text A P: ULTRASOUND; CEPHALIC, ANTRERIOR PLACENTA, EFW 17 92 GMS AT 13%, HYPOPLASTIC NASAL BONE, AGUEDA 10 cm, BPP 8 /8, NL UA DOPPLERS, TVCL 10 MM WITH LARGE FUNNELING FUNIC PRESENTATION Assessment/Impression: IUP 32 5/7 weeks, labor with dilation , short cervix, funic presentation, AMA, prior CD x 1 , hypoplastic nasal bone Plan: admit to inpatient, de livery (if condition worsens), betamethasone admin ( rescue course), magnesium sulfate, surveil zak, labor precautions, preeclampsia precautions, GBS cx, start ampicill in Consultation(s): Consultation performed: umbrella tipper Plan discussed with: patient Comments: total jeannie spent 40 min Electronically Signed by Ky Dailey MD on at 1211 Addendum 1: 01/15/23 1220 by Ky Dailey MD GDM on insulin Electronically Signed by Ky Dailey MD on at 1220 RPT #:[id number] END OF REPORT 2023-01-02 06:04:00-00:00 [facility] ([facility]) Clinical Note REPORT#:[id number] REPORT STATUS: Signed DATE:01/02/23 TIME: 0604 PATIENT: ELISHA HEAD UNIT #: [id number] ROOM/BED: : 85 AGE: 37 SEX: F ATTEND: Ky Dailey MD ADM AUTHOR: Lenora Macario MD * ALL edits or amendments must be made on the el [employer]/computer document * Clinical Note Note: Valuation dictated on patient Elisha Head acco unt number [id number] for evaluation in on 01/02/2023 in OB ED by Peg Macario MD triage hospitalist per request of Dr. Bull on-call for Dr. Dailey. Patient is a 37-year-old -0-1-1 with unsure last menstrual period, and estimated date of confinement 03/07/2023. She pre sented at 30-6/7 weeks complaining of tightening over the last week whi ch worsened overnight. She reports irregular cramping approximately 6 times in the last hour rated at 2-4 out of 10 on the pain scale at between cramps pa in is 0 out of 10. She also reports mucous plug over the weekend with bright red blood and mucus in the toilet about 2 AM this morning. She came to the hospital without calling OB. She denies leakage of fluid, and reports good fe israel movements. She denies headache, scotomata, or other symptoms of preecl ampsia. She denies fever, chills, nausea, vomiting, di arrhea, constipation, or dysuria. She denies cough, sore throat, loss of taste and smell, or other s ymptoms of COVID. She was previously diagnosed with CO VID in January 2021, she has received 1 dose of Felipe Felipe vaccine. Her care began with An[facility] Land early in the first trimester. She was transferred to Dr. Da[facility] due to diagnosis of gestational diabetes in the first trimester her next visit with Dr. Dailey is January 14. The has been notable f or hospitalization at approximately 22 weeks for vaginal bleeding she did not receive b etamethasone or magnesium at that time the bleeding resol valentin and she was discharged after 2 to 3 days. Other risks include advanced maternal age, history of section for preeclampsia at term in her prior pregna ncy, placenta previa which the patient states is now resolved, short cervix which the p atient states was 2.6 cm in length at the last ultrasoun d. Also records report pyelectasis, and hypoplastic nasal bone patient states both of th ose conditions have resolved. No records other than recent hospital admission are available. Past medical history psoriasis diagnosed in 2004, no current medications. Also anxiety which occurs in only, now well controlled with SSRI. Past surgical history abundio an section in 2019, gastric sleeve in 2020, tonsils in 1992, cholecystectomy in 2013, wisdom teeth in 1999, nasal surgery in 1994, and bilateral foot surgery for flatfeet with ext ra bones in 1994. Allergies no known drug allergies Medications vitamins, daily baby aspiri n, Zoloft, Lantus 30 units at bedtime, progesterone pill per vagina, and Prilo sec as needed. OB history in 2009 voluntary termination with me dications in the first trimester. In 2019 full-term section fo r worsening preeclampsia delivered of a male infant weighing 6 pounds 15 ounces, otherwise no complications. [employer] history with regular mon thly cycles. Abnormal Pap smear with cone biopsy in 2002 all normal Pap smears since. History of mul tiple STDs including syphilis gonorrhea chlamydia and HSV diagnosed around 2007. Last HSV lesion 4 years ago, patient denies lesion or prodrome at this time. Social history 1 pack/day to bacco use for approximately 18 years, last in 2018. Occasional prepregnancy alcohol use, no illicit drugs. Patient lives with her spouse, a 46-year-old health y male and her son. 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 Family history maternal grandmother with diabete s, hypertension, and heart disease, paternal grandmother with colon and charan g cancer she was a smoker, paternal grandfather with hi story of prostate cancer otherwise noncontributory. 10 point review of systems negative except as st ated above. On physical exam patient is a well-nourished, well-developed female in no acute distress lying on triage stretcher in OB ED. Height 5 feet 5 inches, weig ht prior to the 218 pounds, with loss down to 211 pounds, and now back up to 213 pounds. Sh e states she usually loses weight in . Blood pressure 118/77, pulse 83, respirations 18 , and temperature 98.3. Head and neck exam within no rmal limits, without lymphadenopathy or thyromegaly. Chest with unlabored breathing, regular rate and rhythm. Breast exam deferred. Abdomen soft, nontender, gravid. Pelvis with sterile speculum exam showing light brown discharge, bright red blood seen. The progesterone pill appeared intac t in the upper vagina. No sterile vaginal exam was per formed due to documented history of placenta previa and nothing showing previa had resolved. Extremities are without edema. Neuro exam is nonfocal, patient is awake, alert, and oriented x3. NST is category 1 for gestational age, with base line heart tones in the 130s, multiple 15 x 15 accel erations, no decelerations, and contractions every 3 to 4 minutes. Labs ordered, but all pending. Ultrasound ordered, but not yet done. ASSESSMENT/PLAN: 37-year-old -0-1-1 presented at 30-6/7 weeks complaining of tightening and vaginal bl eeding. She was diagnosed with gestational diabetes early in the , and on admission at 22 w eeks, is documented to have placenta previa with bleeding at that ti me. She has not received betamethasone or magnesium previously. She has a prior term de livery by for preeclampsia. Patient was given IV fluid hydrati on, frequent contractions did not resolve or space out. First dose of terbutal ine was ordered, Celestone first dose also ordered. Plan discussed with dhiraj sherwood and nursing. I have now turned care of patient over to Dr. Jean at shift change./dsd Electronically Signed by Lenora Macario MD on 04/19 at 0710 RPT #:[id number] END OF REPORT 2022-11-04 13:23:00-00:00 [facility] ([facility]) OB Disch Undelivered REPORT#:[id number] REPORT STATUS: Signed DATE:11/04/22 TIME: 1323 PATIENT: ELISHA HEAD UNIT #: [id number] ROOM/BED: [address] : 85 AGE: 37 SEX: F ATTEND: Ky Dailey MD ADM AUTHOR: Ky Dailey MD * ALL edits or amendments must be made on the [employer]/computer document * Subjective Subjective Patient reports: Patient reports: Yes: normal movement. No: complaints, abd ominal pain, vaginal bleeding , leaking fluid, contractions. Objective Physical Exam HEENT: normocephalic w/o injury Neuro: Exam: alert, oriented x3, normal speech Abdomen: gravid, soft, no abnormal tenderness Discharge Undelivered General Free Text A P: SEEN AROUND 8aM ULTRASOUND: CEPHALIC, ANTERI OR PLACENTA PREVIA, EFW 445 GMS AT 15%, BPP 8/8, NL UA DOPPLERS, MVP 5.5 CM NORMAL Assessment: Patient is a 37 year old AT 22+ WEEK gestation W ITH VAG BLEEDING AND PLACENTA PREVIA, BLEEDING SUBSIDED Plan: dc homewith bleeding , FCK AND LABOR PRECAUTIONS Hospital course: SHE WAS OBSERVED FOR 48 HOURS AND SHE DID WELL Discharge to: Home/Self Care Discharge condition: stable Discharge diagnosis: PLACENTA PREVIA WITH BLEEDI NG THAT SUBSIDED Discharge Instructions Diet: Diabetic Additional Discharge Routines: None Prescriptions: Stop taking the following medications: ASPIRIN (ASPIRIN) 81 MG TAB.CHEW 81 MILLIGRAM ORAL DAILY. Continue taking these medications: PNV/FE FUM/FA ( MULTIVITAMIN) 28 MG IRON -800 MCG TAB 1 TABLET ORAL DAILY. SERTRALINE (ZOLOFT) 25 MG TAB 25 MILLIGRAM ORAL DAILY. OMEPRAZOLE ER (PriLOSEC) 10 MG CAP.DR 10 MILLIGRAM ORAL DAILY. INSULIN GLARGINE (LANTUS) 100 UNIT/ML VIAL 18 UNITS SUBCUTANE. BEDTIME. ACETAMINOPHEN (TYLENOL) 325 MG TAB 650 MILLIGRAM ORAL EVERY 4 HOURS NEEDED. as needed for HEADACHE Electronically Signed by Ky Dailey MD on 06/19 at 1345 RPT #:[id number] END OF REPORT 2022-11-03 08:54:00-00:00 [facility] ([facility]) OB Antepartum Prog Note REPORT#:[id number] REPORT STATUS: Signed DATE:11/03/22 TIME: 0854 PATIENT: ELISHA HEAD UNIT #: [id number] ROOM/BED: [address] : 85 AGE: 37 SEX: F ATTEND: Ky Dailey MD ADM AUTHOR: Ky Dailey MD * ALL edits or amendments must be made on the el [employer]/computer document * Subjective Subjective Patient reports: Patient reports: Yes normal movement, No no complaints, No abdominal pain, No vaginal bleeding, No leaking fluid, No contractions Objective Nursing Documentation Review Nursing data: The data set between the solid lines has been im ported from nursing documentation. Any exceptions have been noted be low under Provider comments. ROM date: ROM time: Labor onset date: Labor onset time: Provider comments on imported nursing data: [] VS: Last Documented: Result Date Time B/P Mean 80.0 11/020 B/P 109/66 11/02 2040 Pulse 75 11/02 2040 Pulse Ox 100 11/02 1038 Temp 98.4 11/02 1038 Resp 18 11/02 1038 Vital Signs Date Temp Pulse Resp B/P B/P Mean Pulse Ox FiO 2 11/02 98.4 70-75 18 109-123/66-69 80.0-92.0 100 PATIENT WEIGHT: Weight (lb): 211 Weight (oz): 6.77 Weight (kg): 95.900 HEENT: normocephalic w/o injury Neuro: Exam: alert, oriented x3, normal speech Abdomen: gravid, soft, no abnormal tenderness Diagnosis, Assessment Plan Diagnosis, Assessment Plan Free Text A P: IUP 22.2 WEEKS, VAG BLEEDIN G, PREVIA, SHORT CERVIX, GDM ON INSULIN, AMA, PRIOR CD X 1 , PRIOR PREECLAMPSIA, FETUS WITH PYELECTA SIS AND SUSPECTED NASAL HYPOPLASTIC BONE Plan: continue current managmnt, betamethasone a dmin (if bleeding recurs), magnesium sulfate (if bleeding recurs), inpatien t obs total 48 h then dc home Electronically Signed by Ky Dailey MD on 05/20 at 0855 [facility] #:[id number] END OF REPORT 2022-11-02 16:40:00-00:00 [facility] ([facility]) OB Admission / H P REPORT#:[id number] REPORT STATUS: Signed DATE:11/02/22 TIME: 1639 PATIENT: ELISHA HEAD UNIT #: [id number] ROOM/BED: 5052-A : 85 AGE: 37 SEX: F ATTEND: Yaya Dailey MD ADM AUTHOR: Ky Dailey MD * ALL edits or amendments must be made on the [employer]/computer document * OB History Chief complaint: vaginal bleeding HPI: 37 y old at 22.1 weeks who I saw around 8am this morning. she presented to [facility] for a gush of blood at home, no pain, no sex, no LOF, no CTX, she reported good FM. She is known to have placenta p revia and GDM on levemir 14 u QHS, her bleeding has significantly slowed down, Fetus wi th pylectasis and suspected hypoplastic nasal bone POHx: CD x 1, EAB x 1 Past History Additional Medical History: advanced mat age, she declined NIPT and amnio, p rior h/o preE at 38 weeks , anxiety Past Surgical History: Reports: . Additional Surgical History: BARIATRIC SURGERY Family History Denies: Abdominal aortic aneurysm, Anemia, Asthm a, CAD < 40 yrs old, Cancer, Coagulopathy, Dementia/Alzheimer's dis, Depressi on/mood disorder, Diabetes, Heart disease, Hypertension, Kidney disease/stones, Seizure disorder, Stroke/TIA , Subarachnoid hemorrhage, S udden cardiac , Thyroid disorder, , Connective tissue dis, Gallbladder disease, Hyperlipidemia, Neurofibromatosis, Sickle cell disease. Alcohol Use Denies EtOH use Drug Use Denies recreational drugs Smoking status for patients 13 years old or olde r: Never Smoker Allergies: Coded Allergies: No Known Drug Allergies (Mild, NONE 11/02/22) Review of Systems Constitutional: Denies: chills. Skin: Denies: abrasion. Allergy/Immun: Denies: allergic reaction. Eyes: Denies: redness. ENT: Denies: ear drainage. Respiratory: Denies: PALACIOS (dyspnea on exertion). Cardiovascular: Denies: chest pain. GI: Denies: abdominal pain. : Denies: dysuria. Musculoskeletal: Denies: arthritis. Objective General VS: Last Documented: Result Date Time B/P Mean 92.0 11/02 1038 Pulse Ox 100 11/02 1038 B/P 123/69 11/02 1038 Temp 98.4 11/02 1038 Pulse 70 11/02 1038 Resp 18 11/02 1038 Vital Signs Date Temp Pulse Resp B/P B/P Mean Pulse Ox FiO 2 11/02 98.4-98.7 70-76 16-18 117-123/69-70 89.0- 92.0 100 PATIENT WEIGHT: Weight (lb): 211 Weight (oz): 6.77 Weight (kg): 95.900 Physical Exam HEENT: normocephalic w/o injury Cardiac: regular rate and rhythm Lungs: clear to auscultation Breasts: deferred Neuro: Exam: alert, oriented x3, normal speech Abdomen: gravid, soft, no abnormal tenderness Diagnosis, Assessment Plan Diagnosis, Assessment Plan Assessment/Impression: IUP 22.1 WEEKS, V AG BLEEDING, PREVIA, SHORT CERVIX, GDM ON INSULIN, AMA, PRIOR CD X 1 , PRIOR OR EECLAMPSIA, FETUS WITH PYELECTASIS AND SUSPECTED NASAL HYPOPLASTIC BONE Plan: admit to observation (48 HOURS), delivery (IF HER STATUS PROGRESSES), CELESTONE AND MAG IF MORE BLEEDING Electronically Signed by Ky Dailey MD on 04/19 at 1655 RPT #:[id number] END OF REPORT
[2023-03-14 10:22] LABS: Absolute Lymphocytes (CBC) 1.4 K/uL (0.7-4.9); Hematocrit 40.3 % (36.0-45.0); Lymphocytes % 22.9 % (15.3-44.8); MCV 91.2 fL (80-100); MPV 8.4 fL (7.6-11.3); RBC Red Blood Cell Count 4.42 M/uL (3.86-4.86)
[2023-03-14 10:30] LABS: Specific Gravity > 1.030 (1.005-1.030)
[2023-03-14 10:41] LABS: Potassium 3.9 mEq/L (3.5-5.1)
[2023-03-14 11:46] LABS: Absolute Lymphocytes (CBC) 1.3 K/uL (0.7-4.9); Hematocrit 38.4 % (36.0-45.0); Lymphocytes % 18.8 % (15.3-44.8); MCV 91.2 fL (80-100); MPV 8.3 fL (7.6-11.3); RBC Red Blood Cell Count 4.21 M/uL (3.86-4.86)
--- NOTE | 2023-03-14 12:14 | ER ---
Nurse's Notes [facility] Name: Elisha Vazquez Age: 37 yrs Sex: Female : 1985 Arrival Date: 03/14/2023 Time: 09:20 Bed 5 Private MD: Diagnosis: Abnormal uterine and vaginal bleeding, unspecified Presentation: 03/14 09:26 Chief complaint: Patient states: "I had an emergency on 01/29/23 and today I am as6 vaginal bleeding and I am passing clots". Pt also reports pain to RLQ. Pt very anxious during triage. Coronavirus screen: At this time, the client does not indicate any symptoms associated with coronavirus-19. Ebola Screen: Patient denies travel to an Ebola-affected area in the 21 days before illness onset. Initial Sepsis Screen: Does the patient meet any 2 criteria? HR > 90 bpm. Does the patient have a suspected source of infection? No. Patient's initial sepsis screen is negative. Risk Assessment: Do you want to hurt yourself or someone else? Patient reports no desire to harm self or others. Onset of symptoms was March 14, 2023. 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 - Social history:: Smoking status: Reported history of juuling and/or vaping. Screenin:30 [facility] ED Fall Risk Assessment (Adult) Score/Fall Risk Level 0 - 2 = Low Risk. Abuse eh3 screen: Denies threats or abuse. Denies injuries from another. Nutritional screening: No deficits noted. Tuberculosis screening: No symptoms or risk factors identified. Assessment: 09:30 General: Appears uncomfortable, Behavior is cooperative, anxious. Pain: Denies pain. eh3 Neuro: Level of Consciousness is awake, alert, obeys commands, Oriented to person, place, time, situation. Cardiovascular: Capillary refill < 3 seconds Patient's skin is warm and dry. Respiratory: Airway is patent Respiratory effort is even, unlabored, Respiratory pattern is regular, symmetrical. GI: Abdomen is round non-distended. : Reports vaginal bleeding that is bright red, with clots, moderate flow. Derm: Skin is healthy with good turgor. Musculoskeletal: Circulation, motion, and sensation intact. Range of motion: intact in all extremities. 10:30 Reassessment: Patient appears in no apparent distress at this time. Patient and/or 3 family updated on plan of care and expected duration. Pain level reassessed. Patient is alert, oriented x 3, equal unlabored respirations, skin warm/dry/pink. 11:30 Reassessment: Patient appears in no apparent distress at this time. Patient and/or eh3 family updated on plan of care and expected duration. Pain level reassessed. Patient is alert, oriented x 3, equal unlabored respirations, skin warm/dry/pink. 12:30 Reassessment: Patient appears in no apparent distress at this time. Patient and/or 3 family updated on plan of care and expected duration. Pain level reassessed. Patient is alert, oriented x 3, equal unlabored respirations, skin warm/dry/pink. Vital Signs: 09:26 BP 143 / 83; Pulse 120; Resp 20 S; Temp 97.9(TE); Pulse Ox 100% on R/A; Weight 88 kg as6 (R); Height 5 ft. 5 in. (R); 10:07 BP 124 / 64; Pulse 74; Resp 18; Pulse Ox 100% on R/A; eh3 10:30 BP 115 / 63; Pulse 75; Resp 18; Pulse Ox 100% on R/A; eh3 10:54 BP 132 / 71 Supine; Pulse 74; Pulse Ox 100% on R/A; eh3 10:56 BP 130 / 69 Standing; Pulse 93; Pulse Ox 100% on R/A; eh3 10:58 BP 144 / 87 Sitting; Pulse 65; Pulse Ox 100% on R/A; eh3 11:30 BP 123 / 55; Pulse 71; Resp 18; Pulse Ox 100% on R/A; eh3 12:30 BP 130 / 75; Pulse 73; Resp 18; Pulse Ox 99% on R/A; eh3 09:26 Body Mass Index 32.28 (88.00 kg, 165.1 cm) as6 ED Course: 09:21 Patient arrived in ED. im 09:26 Arm band placed on. as6 09:27 Triage completed. as6 09:30 Patient has correct armband on for positive identification. Placed in gown. Bed in low eh3 position. Call light in reach. Side rails up X2. Client placed on continuous cardiac and pulse oximetry monitoring. NIBP monitoring applied. 09:36 Colt Mac MD is Attending Physician. kdr 09:42 Paulette Neal, RN is Primary Nurse. eh3 10:45 Assist provider with pelvic exam: Set up pelvic tray. Performed by Colt Mac MD eh3 Patient tolerated well. 12:38 Provided Education on: N/A. eh3 12:38 IV discontinued, intact, bleeding controlled, No redness/swelling at site. Pressure eh3 dressing applied. Administered Medications: No medications were administered Medication: 11:12 VIS not applicable for this client. eh3 Outcome: 12:14 Discharge ordered by . kdr 12:38 Discharged to home ambulatory, with family. eh3 12:38 Condition: stable 12:38 Discharge instructions given to patient, Instructed on discharge instructions, follow up and referral plans. Demonstrated understanding of instructions, follow-up care. 12:51 Patient left the ED. eh3 Signatures: Colt Mac MD MD kdr Nnamdi Pride RN RN as6 Paulette Neal, EARL RN 3 Susan Jeffries im Corrections: (The following items were deleted from the chart) 09:29 09:27 PMHx: 10 years ago; as6 as6
--- NOTE | 2023-03-14 12:14 | EDPHYS ---
Physician Documentation [facility] Name: Elisha Vazquez Age: 37 yrs Sex: Female : 1985 Arrival Date: 03/14/2023 Time: 09:20 Bed 5 Private MD: ED Physician Colt Mac HPI: 03/14 14:05 This 37 yrs old Female presents to ER via Ambulatory with complaints of Vaginal kdr Bleeding - 6 weeks post - . 14:06 Patient reports on January 29 of this year she had emergency . Since then she has kdr had bleeding which she felt was slowly resolving until the last day or so when she started to have increased vaginal bleeding. She states that she has had several episodes with large clots that have come out. Patient denies any significant or persistent abdominal pain or back pain. She has had no nausea or vomiting. Patient is otherwise stable in the ED. She did produce photo images of significant clots from her vagina. Patient is otherwise stable in the ED and does not appear toxic or in need of emergent intervention at this time. Onset: The symptoms/episode began/occurred yesterday. Severity of symptoms: At their worst the symptoms were mild in the emergency department the symptoms have improved. The patient has not experienced similar symptoms in the past. The patient has been recently seen by a physician: in Patient has had usual follow-up though she has had somewhat increased bleeding . Patient otherwise is without significant finding. 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 - Social history:: Smoking status: Reported history of juuling and/or vaping. ROS: 14:06 Constitutional: Negative for fever, chills, and weight loss, Eyes: Negative for injury, kdr pain, redness, and discharge, Neck: Negative for injury, pain, and swelling, Cardiovascular: Negative for chest pain, palpitations, and edema, Respiratory: Negative for shortness of breath, cough, wheezing, and pleuritic chest pain, Abdomen/GI: Negative for abdominal pain, nausea, vomiting, diarrhea, and constipation, Back: Negative for injury and pain, MS/Extremity: Negative for injury and deformity, Skin: Negative for injury, rash, and discoloration, Neuro: Negative for headache, weakness, numbness, tingling, and seizure activity. Psych: Negative for depression, anxiety, suicide ideation, homicidal ideation, and hallucinations, Allergy/Immunology: Negative for hives, rash, and allergies, Endocrine: Negative for neck swelling, polydipsia, polyuria, polyphagia, and marked weight changes, Hematologic/Lymphatic: Negative for swollen nodes, abnormal bleeding, and unusual bruising. 14:06 : Positive for flank pain, vaginal bleeding, Negative for burning with urination, difficulty urinating, bladder incontinence, foul smelling urine, vaginal discharge, vaginal itching, menstrual abnormality. Exam: 14:06 Constitutional: This is a well developed, well nourished patient who is awake, alert, kdr and in no acute distress. Head/Face: Normocephalic, atraumatic. Eyes: Pupils equal round and reactive to light, extra-ocular motions intact. Lids and lashes normal. Conjunctiva and sclera are non-icteric and not injected. Cornea within normal limits. Periorbital areas with no swelling, redness, or edema. Neck: Trachea midline, no thyromegaly or masses palpated, and no cervical lymphadenopathy. Supple, full range of motion without nuchal rigidity, or vertebral point tenderness. No Meningismus. Chest/axilla: Normal chest wall appearance and motion. Nontender with no deformity. No lesions are appreciated. Cardiovascular: Regular rate and rhythm with a normal S1 and S2. No gallops, murmurs, or rubs. Normal PMI, no JVD. No pulse deficits. Respiratory: Lungs have equal breath sounds bilaterally, clear to auscultation and percussion. No rales, rhonchi or wheezes noted. No increased work of breathing, no retractions or nasal flaring. Abdomen/GI: Soft, non-tender, with normal bowel sounds. No distension or tympany. No guarding or rebound. No evidence of tenderness throughout. Back: No spinal tenderness. No costovertebral tenderness. Full range of motion. Skin: Warm, dry with normal turgor. Normal color with no rashes, no lesions, and no evidence of cellulitis. MS/ Extremity: Pulses equal, no cyanosis. Neurovascular intact. Full, normal range of motion. Neuro: Awake and alert, GCS 15, oriented to person, place, time, and situation. Cranial nerves II-XII grossly intact. Motor strength 5/5 in all extremities. Sensory grossly intact. Cerebellar exam normal. Normal gait. Psych: Awake, alert, with orientation to person, place and time. Behavior, mood, and affect are within normal limits. 14:06 : CVA tenderness, is absent, Pelvic Exam: External exam: is normal, Speculum exam: mild bleeding, blood clots in vaginal vault, no cervicitis, os that is open. Vital Signs: 09:26 BP 143 / 83; Pulse 120; Resp 20 S; Temp 97.9(TE); Pulse Ox 100% on R/A; Weight 88 kg as6 (R); Height 5 ft. 5 in. (R); 10:07 BP 124 / 64; Pulse 74; Resp 18; Pulse Ox 100% on R/A; eh3 10:30 BP 115 / 63; Pulse 75; Resp 18; Pulse Ox 100% on R/A; eh3 10:54 BP 132 / 71 Supine; Pulse 74; Pulse Ox 100% on R/A; eh3 10:56 BP 130 / 69 Standing; Pulse 93; Pulse Ox 100% on R/A; eh3 10:58 BP 144 / 87 Sitting; Pulse 65; Pulse Ox 100% on R/A; eh3 11:30 BP 123 / 55; Pulse 71; Resp 18; Pulse Ox 100% on R/A; eh3 12:30 BP 130 / 75; Pulse 73; Resp 18; Pulse Ox 99% on R/A; eh3 09:26 Body Mass Index 32.28 (88.00 kg, 165.1 cm) as6 MDM: 12:14 Patient medically screened. kdr 14:06 Differential Diagnosis. Data reviewed: vital signs, nurses notes, lab test result(s), kdr radiologic studies. 14:06 ED course: The pelvic exam was overall unremarkable the patient had small amount of kdr unclogging blood in the cervical vaginal vault. The vaginal vault was cleared was 2 or three 4 x 4's and after that no new bleeding appeared to be coming from the os of the cervix. Patient remained stable in the ED and was concerned about her need to follow-up versus be transferred. 15:10 ED course: I called the patient and informed her of the positive test at this kdr stage of her period. She stated that she has had intercourse just one time (last Monday - 2 days ago) since her . She states that she has an appointment with OB at 4:00 PM today. She has all of the laboratory data to take with her to that appointment. I invited her to return to the ED for an US if she was unable to attend to that appointment. The patient indicated that she has had little to no bleeding since the appointment adn that she understood the information I provided and the offer to return.. 03/14 09:45 Order name: Basic Metabolic Panel; Complete [facility]: 11:[facility] 03/14 09:45 Order name: CBC with Diff; Complete [facility]: 11:45 [facility] 03/14 09:45 Order name: Test, Urine; Complete [facility]: 11:45 [facility] 03/14 09:45 Order name: Type And Screen; Complete Time: 14:34 [facility] 03/14 11:23 Order name: CBC with Diff; Complete Time: 12:13 [facility] 03/14 11:29 Order name: Test, Serum; Complete Time: 14:34 03/14 09:45 Order name: IV Saline Lock; Complete Time: 10:15 kdr 03/14 09:45 Order name: Labs collected and sent; Complete Time: 10:15 [facility] 03/14 09:45 Order name: NPO; Complete Time: 10:10 [facility] 03/14 09:45 Order name: Setup-Pelvic Exam; Complete Time: 10:20 [facility] 03/14 10:22 Order name: Labs - recollect needed: T\T\S, cut off; Complete Time: 11:02 03/14 10:55 Order name: Labs - recollect needed: re collect type and screen with repeat H\T\H; bd Complete Time: 11:03/14 10:56 Order name: Orthostatic Blood Pressure; Complete Time: 11:02 kdr Administered Medications: No medications were administered Disposition Summary: 03/14/23 12:14 Discharge Ordered Location: Home kdr Problem: an ongoing problem kdr Symptoms: have improved kdr Condition: Stable kdr Diagnosis - Abnormal uterine and vaginal bleeding, unspecified kdr Followup: kdr - With: Private Physician - When: 2 - 3 days - Reason: If symptoms return, Further diagnostic work-up, Recheck today's complaints, Continuance of care, Re-evaluation by your physician Discharge Instructions: - Discharge Summary Sheet kdr - Abnormal Uterine Bleeding kdr - Dysfunctional Uterine Bleeding kdr Forms: - Medication Reconciliation Form kdr - Thank You Letter kdr - Patient Portal Instructions kdr Signatures: Dispatcher [employer] EDCori Partida Kevin, MD MD kdr Nancy Castellanos RN RN iw Nnamdi Pride RN RN as6 Paulette Neal RN RN eh3 Corrections: (The following items were deleted from the chart) 09: 09:27 PMHx: 10 years ago; as6 as6 12:23 09:46 ABO/RH TYPING+[id number].LAB.BRZ ordered. EDDC EDMS
[2023-03-14 13:15] VITALS: TEMP 97.9
[2023-03-14 13:27] VITALS: BP 130/75; O2SAT 99
== END 2023-03-14 12:51 | disposition home or self-care (01) ==
LOC: ER 09:20
DX: N93.9 Abnormal uterine and vaginal bleeding, unspecified (principal)
CPT/HCPCS: 36415; 80048; 81025; 84703; 85025; 86850; 86900; 86901; 99284